=== PATIENT | male | born 1960 | race American Indian/Alaskan Native ===

== ENCOUNTER 2018-11-01 12:04 | Inpatient (IN) | payer MEDICAID ==
[2018-11-01] MEDS ORDERED: SODIUM CHLORIDE FLUSH SYRINGE 10 ML IV PRN (12:06)
[2018-11-01] MEDS ORDERED: NORCO 5/325 PO PRN (12:29)
--- NOTE | 2018-11-01 14:45 | XRay Report ---
AP ABDOMEN: HISTORY: Constipation. The abdominal gas pattern is unremarkable. No masses or organomegaly is identified and there is no gross evidence of free air or fluid. No significant soft tissue calcifications are noted. IMPRESSION: Unremarkable abdomen.
[2018-11-01 15:08] LABS: Basophils % (Auto) 0.6 % (0.0-1.8); Eosinophils # (Auto) 0.1 K/mm3 (0.0-0.4); Hematocrit 32.4 % (35.5-45.6); Lymphocytes # (Auto) 1.7 K/mm3 (1.2-5.4); Lymphocytes % (Auto) 35.4 % (13.4-35.0); Mean Corpuscular HGB Conc 31 % (32-34); Monocytes # (Auto) 0.7 K/mm3 (0.0-0.8); Monocytes % (Auto) 13.7 % (0.0-7.3); Platelet Count 349 K/mm3 (140-440); Red Blood Count 4.73 M/mm3 (3.65-5.03)
[2018-11-01 15:26] LABS: Alanine Aminotransferase 27 units/L (7-56); BUN/Creatinine Ratio 25; Blood Urea Nitrogen 20 mg/dL (9-20); Calcium 8.9 mg/dL (8.4-10.2); Hemolysis Index 0; Mean Corpuscular Volume 69 fl (84-94); Red Cell Distribution Width 21.3 % (13.2-15.2)
--- NOTE | 2018-11-01 17:55 | History and Physical Report ---
History of Present Illness Date of examination: 11/01/18 Date of admission: 11/01/18 13:02 Chief complaint: Generalized weakness/fatigue. History of present illness: patient presented to the office with above cc. He was recently dx with primary hepatocelular cancer.He has not been able to eat, or drink due to lack of appetite . He has had abdominal pain, N/V, and has lost more than 1/3 of his total wt.. he is admitted for sxs management, and control. Past History Past Medical History: anemia, cancer, hepatitis, liver disease Social history: single Family history: cancer Medications and Allergies Allergies Allergy/AdvReac Type Severity Reaction Status Date / Time No Known Allergies Allergy Verified 11/01/18 12:06 Home Medications Medication Instructions Recorded Confirmed Last Taken Type Eliquis 5 mg PO BID 11/01/18 11/01/18 11/01/18 History Lenvima 12 mg PO HS 11/01/18 11/01/18 10/31/18 History Oxycodone HCl 5 mg PO Q4-6H PRN 11/01/18 11/01/18 11/01/18 History Active Meds: Active Medications Acetaminophen/Hydrocodone Bitart ([place] 5/325) 2 each PO Q8H PRN PRN Reason: Pain, Moderate (4-6) Apixaban (Eliquis) 5 mg PO Q12HR JUAN J Dextrose/Sodium Chloride (D5ns) 1,000 mls @ 175 mls/hr IV DIRECT JUAN J Megestrol Acetate (Megace) 600 mg PO QDAY JUAN J Miscellaneous Medication (Eliquis) 5 mg PO BID JUAN J Nicotine (Habitrol) 21 mg TD QDAY JUAN J Ondansetron HCl (Zofran) 4 mg IV Q8H PRN PRN Reason: Nausea And Vomiting Pantoprazole Sodium (Protonix) 40 mg PO QDAY JUAN J Sodium Chloride (Sodium Chloride Flush Syringe 10 Ml) 10 ml IV BID JUAN J Sodium Chloride (Sodium Chloride Flush Syringe 10 Ml) 10 ml IV PRN PRN PRN Reason: LINE FLUSH Review of Systems Constitutional: weight loss, fatigue, weakness, poor appetite, chronic pain Gastrointestinal: abdominal pain, vomiting, constipation, heartburn Rectal: pain Exam - Constitutional General appearance: Present: mild distress, cachectic - EENT Eyes: Present: PERRL ENT: hearing intact, clear oral mucosa - Neck Neck: Present: supple, normal ROM - Respiratory Respiratory effort: normal Respiratory: bilateral: CTA - Cardiovascular Heart Sounds: Present: S1 & S2. Absent: rub, click - Extremities Extremities: pulses symmetrical, No edema Peripheral Pulses: within normal limits - Abdominal General gastrointestinal: Present: soft, tender, non-distended, normal bowel sounds, hepatomegaly Male genitourinary: Present: deferred - Rectal Rectal Exam: deferred - Integumentary Integumentary: Present: clear, warm, dry - Musculoskeletal Musculoskeletal: gait normal, strength equal bilaterally - Psychiatric Psychiatric: appropriate mood/affect, intact judgment & insight - Neurologic Neurologic: CNII-XII intact, moves all extremities Results - Labs CBC & Chem 7: 11/01/18 14:36 11/01/18 14:36 Labs: Abnormal lab results 11/01/18 11/01/18 11/01/18 Range/Units 14:36 14:36 14:36 Hgb 10.0 L (11.8-15.2) gm/dl Hct 32.4 L (35.5-45.6) % MCV 69 L (84-94) fl MCH 21 L (28-32) pg MCHC 31 L (32-34) % RDW 21.3 H (13.2-15.2) % Lymph % (Auto) 35.4 H (13.4-35.0) % [place] % (Auto) 13.7 H (0.0-7.3) % Sodium 135 L (137-145) mmol/L Chloride 96.5 L (98-107) mmol/L Total Bilirubin 1.90 H (0.1-1.2) mg/dL AST 162 H (5-40) units/L Total Protein 8.7 H (6.3-8.2) g/dL Albumin 3.0 L 3.0 L (3.9-5) g/dL Assessment and Plan - Patient Problems (1) Dehydration Current Visit: Yes Status: Acute Plan to address problem: replacement hydration (2) Dehydration symptoms Current Visit: Yes Status: Acute Plan to address problem: Hydration (3) Appetite loss Current Visit: Yes Status: Acute Plan to address problem: supplement (4) Hepatic cancer Current Visit: Yes Status: Acute Plan to address problem: supportive (5) Hep C w/o coma, chronic Current Visit: Yes Status: Acute Plan to address problem: supportive.reffer to GI (6) Anemia Current Visit: Yes Status: Acute Plan to address problem: monitor labs.
[2018-11-01 18:33] LABS: Iron 24 ug/dL (49-181); Total Iron Binding Capacity 364 mcg/dL (250-450)
[2018-11-01] MEDS: HABITROL TD SCH (19:29)
[2018-11-01] MEDS: D5NS 1,000 ML IV SCH (19:29)
[2018-11-01] MEDS: PROTONIX PO SCH (19:29)
[2018-11-01] MEDS: ELIQUIS PO SCH (21:18)
[2018-11-01] MEDS: SODIUM CHLORIDE FLUSH SYRINGE 10 ML IV SCH (21:21)
[2018-11-01] MEDS: LENVATINIB PO SCH (21:37)
[2018-11-01] MEDS ORDERED: NON-FORMULARY (Eliquis 5 MG) PO SCH (22:00)
[2018-11-02] MEDS: D5NS 1,000 ML IV SCH ×2 (01:11→19:28)
[2018-11-02] MEDS: NORCO 5/325 PO PRN ×5 (03:17→23:31)
[2018-11-02] MEDS: PROTONIX PO SCH (09:03)
[2018-11-02] MEDS: ELIQUIS PO SCH ×2 (09:03→22:23)
[2018-11-02] MEDS: MEGACE PO SCH (09:04)
[2018-11-02] MEDS: ZOFRAN IV PRN (09:08)
[2018-11-02] MEDS: SODIUM CHLORIDE FLUSH SYRINGE 10 ML IV SCH ×2 (09:08→22:26)
[2018-11-02] MEDS: HABITROL TD SCH (09:08)
--- NOTE | 2018-11-02 10:28 | Cat Scan Report ---
PROCEDURE: CT ABDOMEN PELVIS W CON TECHNIQUE: Computerized axial tomography of the abdomen and pelvis was performed after the IV inject ion of iodinated nonionic contrast. Sagittal and coronal reformatted images obtained. Oral contrast a dministered. CT DOSE LENGTH PRODUCT: 1212.4 mGycm HISTORY: RUQ PAIN COMPARISONS: None . FINDINGS: Lung bases demonstrate minimal atelectasis. No effusion. Calcified granuloma lingula. Multifocal hypodensity throughout the right lobe of the liver. Liver demonstrates a nodular cirrhotic appearance. There is thrombus in the portal vein. This constellation of findings is highly suspiciou s for infiltrative HCC with tumor thrombus in the portal vein. Differential also includes multifocal right lobe abscess. Trace right upper quadrant ascites Spleen normal size Pancreas unremarkable Gallbladder demonstrates cholelithiasis. No biliary dilatation. Adrenal glands unremarkable Kidneys unremarkable. Atherosclerotic calcification of the aorta. No aneurysm. Celiac and superior mesenteric arteries are patent Bladder contracted. No bowel obstruction. Thickening of the right colon likely representing portal hypertensive colonopat hy secondary to portal vein thrombus. No free air Omentum and mesentery unremarkable. No significant diverticulosis. No diverticulitis No acute bony abnormality IMPRESSION: Multiple hypoattenuating areas throughout the right lobe of the liver. This finding is s uperimposed on a background of nodular cirrhotic liver. The portal vein is thrombosed. This constella tion of findings is suspicious for multifocal infiltrating HCC with tumor thrombus in the portal vein . Differential also includes multifocal loculated hepatic abscess. Clinical correlation. If further i maging evaluation contemplating, multiphasic contrasted MRI recommended. Low volume ascites right upper quadrant Thickening of the right colon likely representing portal hypertensive colonopathy No free air . CRITICAL VALUE: LIVER TUMOR/ABSCESS. PORTAL VEIN THROMBUS LIZ critical value report initiated 10:26 AM 2018 This document is electronically signed by Macario Flores MD., Nov 02 2018 10:26:52 AM ET
--- NOTE | 2018-11-02 14:50 | Progress Note ---
Assessment and Plan - Patient Problems (1) Dehydration Current Visit: Yes Status: Acute Plan to address problem: replacement hydration (2) Dehydration symptoms Current Visit: Yes Status: Acute Plan to address problem: Hydration (3) Appetite loss Current Visit: Yes Status: Acute Plan to address problem: supplement (4) Hepatic cancer Current Visit: Yes Status: Acute Plan to address problem: supportive (5) Hep C w/o coma, chronic Current Visit: Yes Status: Acute Plan to address problem: supportive.reffer to GI (6) Anemia Current Visit: Yes Status: Acute Plan to address problem: monitor labs. Subjective Date of service: 11/02/18 Principal diagnosis: Dehydration, generalized fatigue. Abdominal pain. Interval history: Patient seen/examined, resting in bed, labs/scans reviewed, case d/w patient. Will consult IR for tissue bx, and GI for Hep c. Objective - Constitutional Vitals: Vital Signs - 12hr 11/02/18 11/02/18 05:14 11:10 Temperature 97.5 F L 97.7 F Pulse Rate 54 L 62 Respiratory 24 18 Rate Blood Pressure 148/90 156/95 O2 Sat by Pulse 99 96 Oximetry General appearance: Present: mild distress, cachectic - EENT Eyes: PERRL, EOM intact ENT: hearing intact, clear oral mucosa Ears: bilateral: normal - Neck Neck: supple, normal ROM - Respiratory Respiratory effort: normal Respiratory: bilateral: CTA - Breasts Breasts: deferred - Cardiovascular Rhythm: regular Heart Sounds: Present: S1 & S2. Absent: gallop, rub Extremities: pulses intact, No edema, normal color, Full ROM - Gastrointestinal General gastrointestinal: Present: soft, non-tender, non-distended, normal bowel sounds Rectal Exam: deferred - Genitourinary Male genitourinary: deferred - Integumentary Integumentary: clear, warm, dry - Musculoskeletal Musculoskeletal: 1, strength equal bilaterally - Neurologic Neurologic: moves all extremities - Psychiatric Psychiatric: memory intact, appropriate mood/affect, intact judgment & insight - Labs CBC & Chem 7: 11/01/18 14:36 11/01/18 14:36 Labs: Abnormal lab results 11/01/18 11/01/18 11/01/18 Range/Units 14:36 14:36 14:36 Hgb 10.0 L (11.8-15.2) gm/dl Hct 32.4 L (35.5-45.6) % MCV 69 L (84-94) fl MCH 21 L (28-32) pg MCHC 31 L (32-34) % RDW 21.3 H (13.2-15.2) % Lymph % (Auto) 35.4 H (13.4-35.0) % [place] % (Auto) 13.7 H (0.0-7.3) % Sodium 135 L (137-145) mmol/L Chloride 96.5 L (98-107) mmol/L Iron (49-181) ug/dL Total Bilirubin 1.90 H (0.1-1.2) mg/dL AST 162 H (5-40) units/L Total Protein 8.7 H (6.3-8.2) g/dL Albumin 3.0 L 3.0 L (3.9-5) g/dL 11/01/18 Range/Units 17:59 Hgb (11.8-15.2) gm/dl Hct (35.5-45.6) % MCV (84-94) fl MCH (28-32) pg MCHC (32-34) % RDW (13.2-15.2) % Lymph % (Auto) (13.4-35.0) % [place] % (Auto) (0.0-7.3) % Sodium (137-145) mmol/L Chloride (98-107) mmol/L Iron 24 L (49-181) ug/dL Total Bilirubin (0.1-1.2) mg/dL AST (5-40) units/L Total Protein (6.3-8.2) g/dL Albumin (3.9-5) g/dL Medications & Allergies - Medications Allergies/Adverse Reactions: Allergies No Known Allergies Allergy (Verified 11/01/18 12:06) Home Medications: Home Medications Medication Instructions Recorded Confirmed Last Taken Type Eliquis 5 mg PO BID 11/01/18 11/01/18 11/01/18 History Lenvima 12 mg PO HS 11/01/18 11/01/18 10/31/18 History Oxycodone HCl 5 mg PO Q4-6H PRN 11/01/18 11/01/18 11/01/18 History Active Medications: Generic Name Dose Route Start Last Admin Trade Name Freq PRN Reason Stop Dose Admin Acetaminophen/Hydrocodone Bitart 2 each 11/02/18 03:12 11/02/18 14:16 [place] 5/325 PO 2 each Q4H PRN Administration Pain, Moderate (4-6) Apixaban 5 mg 11/01/18 22:00 11/02/18 09:03 Eliquis PO 5 mg Q12HR JUAN J Administration Dextrose/Sodium Chloride 1,000 mls @ 175 mls/hr 11/01/18 13:00 11/02/18 01:11 D5ns IV 175 mls/hr DIRECT JUAN J Administration Megestrol Acetate 600 mg 11/02/18 10:00 11/02/18 09:04 Megace PO 600 mg QDAY JUAN J Administration Miscellaneous Medication 12 mg 11/01/18 22:00 11/01/18 21:37 Lenvima PO 12 mg HS JUAN J Administration Nicotine 21 mg 11/01/18 14:00 11/02/18 09:08 Habitrol TD 21 mg QDAY JUAN J Administration Ondansetron HCl 4 mg 11/01/18 12:06 11/02/18 09:08 Zofran IV 4 mg Q8H PRN Administration Nausea And Vomiting Pantoprazole Sodium 40 mg 11/01/18 13:00 11/02/18 09:03 Protonix PO 40 mg QDAY JUAN J Administration Sodium Chloride 10 ml 11/01/18 22:00 11/02/18 09:08 Sodium Chloride Flush Syringe 10 Ml IV 10 ml BID JUAN J Administration Sodium Chloride 10 ml 11/01/18 12:06 Sodium Chloride Flush Syringe 10 Ml IV PRN PRN LINE FLUSH
[2018-11-02] MEDS: LENVATINIB PO SCH (22:23)
[2018-11-03] MEDS: D5NS 1,000 ML IV SCH (03:18)
--- NOTE | 2018-11-03 09:30 | Event Note ---
Date: 11/03/18 58 year old male with hepatitis C and infiltrating mass with associated portal vein thrombosis. Reviewed the chart. Infiltrating HCC is in the differential. Multifocal abscess is unlikely given normal WBC and afebrile nature of patient. Liver mass workup requires AFP, hepatitis panel seems to have been already performed (hepatitis C positive per history), and MRI of the liver with and without contrast. MRI can be highly diagnostic of HCC/liver masses in general and may prevent need for biopsy. In addition, biopsy in this patient would be complicated and would require transition to heparin drip. In addition, HCC can seed the tract and bleed, which is why MRI is performed instead. If MRI diagnostic, do not recommend biopsy.
[2018-11-03] MEDS: PROTONIX PO SCH (09:43)
[2018-11-03] MEDS: ELIQUIS PO SCH ×2 (09:43→22:56)
[2018-11-03] MEDS: NORCO 5/325 PO PRN ×4 (09:43→22:55)
[2018-11-03] MEDS: ZOFRAN IV PRN ×2 (09:43→18:26)
[2018-11-03] MEDS: HABITROL TD SCH (09:43)
[2018-11-03] MEDS: MEGACE PO SCH (09:46)
--- NOTE | 2018-11-03 10:16 | Progress Note ---
Assessment and Plan - Patient Problems (1) Dehydration Current Visit: Yes Status: Acute Plan to address problem: replacement hydration (2) Dehydration symptoms Current Visit: Yes Status: Acute Plan to address problem: Hydration (3) Appetite loss Current Visit: Yes Status: Acute Plan to address problem: supplement (4) Hepatic cancer Current Visit: Yes Status: Acute Plan to address problem: supportive (5) Hep C w/o coma, chronic Current Visit: Yes Status: Acute Plan to address problem: supportive.reffer to GI (6) Anemia Current Visit: Yes Status: Acute Plan to address problem: monitor labs. Subjective Date of service: 11/03/18 Principal diagnosis: Dehydration, generalized fatigue. Abdominal pain. Interval history: Patient seen/examined, resting in bed, labs/scans reviewed, case d/w patient. Will consult IR for tissue bx, and GI for Hep c. Patient seen/examined, resting in bed, records reviewed, case d/w him. Awaiting consultants GI, and Vascular/IR Objective - Constitutional Vitals: Vital Signs - 12hr 11/02/18 11/03/18 23:34 05:57 Temperature 97.3 F L 97.7 F Pulse Rate 56 L 49 L Respiratory 20 20 Rate Blood Pressure 177/92 174/94 O2 Sat by Pulse 97 99 Oximetry General appearance: Present: mild distress, cachectic - EENT Eyes: PERRL, EOM intact ENT: hearing intact, clear oral mucosa Ears: bilateral: normal - Neck Neck: supple, normal ROM - Respiratory Respiratory effort: normal Respiratory: bilateral: CTA - Breasts Breasts: deferred - Cardiovascular Rhythm: regular Heart Sounds: Present: S1 & S2. Absent: gallop, rub Extremities: pulses intact, No edema, normal color, Full ROM - Gastrointestinal General gastrointestinal: Present: soft, non-tender, non-distended, normal bowel sounds Rectal Exam: deferred - Genitourinary Male genitourinary: deferred - Integumentary Integumentary: clear, warm, dry - Musculoskeletal Musculoskeletal: 1, strength equal bilaterally - Neurologic Neurologic: moves all extremities - Psychiatric Psychiatric: memory intact, appropriate mood/affect, intact judgment & insight - Labs CBC & Chem 7: 11/01/18 14:36 11/01/18 14:36 Medications & Allergies - Medications Allergies/Adverse Reactions: Allergies No Known Allergies Allergy (Verified 11/01/18 12:06) Home Medications: Home Medications Medication Instructions Recorded Confirmed Last Taken Type Eliquis 5 mg PO BID 11/01/18 11/01/18 11/01/18 History Lenvima 12 mg PO HS 11/01/18 11/01/18 10/31/18 History Oxycodone HCl 5 mg PO Q4-6H PRN 11/01/18 11/01/18 11/01/18 History Active Medications: Generic Name Dose Route Start Last Admin Trade Name Freq PRN Reason Stop Dose Admin Acetaminophen/Hydrocodone Bitart 2 each 11/02/18 03:12 11/03/18 09:43 [place] 5/325 PO 2 each Q4H PRN Administration Pain, Moderate (4-6) Apixaban 5 mg 11/01/18 22:00 11/03/18 09:43 Eliquis PO 5 mg Q12HR JUAN J Administration Dextrose/Sodium Chloride 1,000 mls @ 175 mls/hr 11/01/18 13:00 11/03/18 03:18 D5ns IV 175 mls/hr DIRECT JUAN J Administration Dextrose 1,000 mls @ 75 mls/hr 11/03/18 11:00 D5w IV DIRECT JUAN J Megestrol Acetate 600 mg 11/02/18 10:00 11/03/18 09:46 Megace PO 600 mg QDAY JUAN J Administration Miscellaneous Medication 12 mg 11/01/18 22:00 11/02/18 22:23 Lenvima PO 12 mg HS JUAN J Administration Nicotine 21 mg 11/01/18 14:00 11/03/18 09:43 Habitrol TD 21 mg QDAY JUAN J Administration Ondansetron HCl 4 mg 11/01/18 12:06 11/03/18 09:43 Zofran IV 4 mg Q8H PRN Administration Nausea And Vomiting Pantoprazole Sodium 40 mg 11/01/18 13:00 11/03/18 09:43 Protonix PO 40 mg QDAY JUAN J Administration Sodium Chloride 10 ml 11/01/18 22:00 11/02/18 22:26 Sodium Chloride Flush Syringe 10 Ml IV 10 ml BID JUAN J Administration Sodium Chloride 10 ml 11/01/18 12:06 Sodium Chloride Flush Syringe 10 Ml IV PRN PRN LINE FLUSH
[2018-11-03] MEDS ORDERED: D5NS 1,000 ML IV SCH (11:00)
[2018-11-03] MEDS ORDERED: D5W 1,000 ML IV SCH (11:00)
[2018-11-03] MEDS ORDERED: NACL 0.9% 1000 ML 1,000 ML IV SCH (11:00)
[2018-11-03] MEDS: SODIUM CHLORIDE FLUSH SYRINGE 10 ML IV SCH (18:25)
--- NOTE | 2018-11-03 20:55 | Consultation ---
REFERRING PHYSICIAN: Nam Vallejo DO INDICATION: 1. Hepatitis C. 2. Liver cancer. HISTORY OF PRESENT ILLNESS: The patient is a 58-year-old black male who has been seen by GI for hepatitis C, cirrhosis and liver cancer. The patient reports that he was diagnosed in 08/2018 and told he had liver cancer. The patient gives a vague history that he was started on medicine, but was somewhat dissatisfied with his treatment and was not sure exactly what was the long-term plan. The patient reports that he has been having nausea, vomiting and extreme weight loss and has lost one-third of his weight over the last 3-4 months. The patient subsequently was seen by Dr. Vallejo and admitted and GI consulted. He reports only finding of hepatitis C when he was diagnosed with liver disease back in August and has never been treated. The patient reports some constipation. Denies any rectal bleeding. He reports his last colonoscopy was earlier this year and was benign. He reports some nausea without vomiting. Denies any other specific problems or complaints. PAST MEDICAL HISTORY: 1. Hepatitis C. 2. Liver cancer. MEDICATIONS: Reviewed and updated in chart. ALLERGIES: No known drug allergies. SOCIAL HISTORY: Previous smoker. FAMILY HISTORY: Negative for colon cancer, IBD, or liver disease. REVIEW OF SYSTEMS: GENERAL: Reports some weakness. HEENT: The patient reports eyes are yellow. PULMONARY: No shortness of breath. No cough. No chest pain. GASTROINTESTINAL: Reports right upper left-sided abdominal pain. All points of 13-point review of systems are otherwise negative. PHYSICAL EXAMINATION: VITAL SIGNS: Temperature 97.7, pulse 56, respirations 20, blood pressure 174/90. GENERAL: Somewhat thin and somewhat weak appearing black male, in no acute distress. HEENT: Sclerae icteric. PULMONARY: Clear to auscultation bilaterally. CARDIOVASCULAR: Regular rhythm. Normal S1, S2. ABDOMEN: Positive bowel sounds, soft, mild right upper quadrant pain. No guarding, no rebound. SKIN: No obvious rashes. LABORATORY DATA AND IMAGING STUDIES: Labs are pertinent for white count of 4.9, hemoglobin and hematocrit of 10 and 32.4, platelet count of 349. Chem-7: Sodium of 135, potassium 4.8, chloride 97, CO2 is 27, BUN and creatinine of 28 and 0.8, total bilirubin of 1.9, AST and ALT of 162 and 27 with an alkaline phosphatase of 124. CT scan showed multiple liver lesions noted, especially in the right side of the liver with noted nodular cirrhosis appearance and portal vein thrombosis with findings suggestive of hepatocellular carcinoma. ASSESSMENT: A 58-year-old male who was diagnosed in August when he presented with weight loss and abdominal pain with liver cancer and also noted at that time to be hepatitis C positive. The patient reports he was put on medicines by oncology but wasn't not sure as to the termite helper plan where he was being seen, but was unclear as to the long-term plan of management. Subsequently, was seen by Dr. Vallejo and admitted for further evaluation and management. Suspect the patient has hepatocellular carcinoma, most likely related to chronic hepatitis C, which per him was previously unknown. Management is noted below. PLAN: 1. We will review CT scan. 2. CA 19-9 to be ordered. 3. Agree with liver biopsy as ordered by Oncology. 4. We will get hepatitis C related labs including viral load and genotype. 5. Followup and further recommendation management based on progress and results of the above. 6. Nutrition support per primary team. JOB# [id number] LLOYD/RITA JULIAN
[2018-11-03] MEDS: LENVATINIB PO SCH (22:58)
[2018-11-04] MEDS: SODIUM CHLORIDE FLUSH SYRINGE 10 ML IV SCH ×3 (01:52→21:20)
[2018-11-04 08:50] LABS: Basophils % (Auto) 0.1 % (0.0-1.8); Eosinophils # (Auto) 0.1 K/mm3 (0.0-0.4); Eosinophils % (Auto) 1.9 % (0.0-4.3); Hematocrit 29.2 % (35.5-45.6); Hemoglobin 9.1 gm/dl (11.8-15.2); Lymphocytes # (Auto) 2.1 K/mm3 (1.2-5.4); Lymphocytes % (Auto) 34.4 % (13.4-35.0); Mean Corpuscular HGB Conc 31 % (32-34); Mean Corpuscular Volume 68 fl (84-94); Monocytes # (Auto) 0.5 K/mm3 (0.0-0.8); Monocytes % (Auto) 8.1 % (0.0-7.3); Platelet Count 285 K/mm3 (140-440); Red Blood Count 4.31 M/mm3 (3.65-5.03); Red Cell Distribution Width 21.6 % (13.2-15.2)
[2018-11-04 09:08] LABS: BUN/Creatinine Ratio 11; Blood Urea Nitrogen 8 mg/dL (9-20); Calcium 7.9 mg/dL (8.4-10.2)
[2018-11-04 09:09] LABS: Hemolysis Index 0
[2018-11-04] MEDS: NORCO 5/325 PO PRN ×2 (11:40→23:16)
[2018-11-04] MEDS: APRESOLINE PO SCH ×2 (12:31→21:20)
--- NOTE | 2018-11-04 12:36 | Gastroenterology Progress Note ---
Assessment and Plan 1.hepatitis C 2.liver cancer -HCV VL and genotype pending -CA 19-9, AFP, and CEA pending -etiology-most likely HCC 2/2 chronic hep C -IR following- with no recommendations for liver bx (HCC can seed the tract and bleed) with diagnosistic MRI ordered instead -clinically, patient is stable. Reports continued abd pain. No N/V or active sig ns of bleeding -continue supportive care -further recommendations to follow MRI results as above Subjective Date of service: 11/04/18 Principal diagnosis: hepatitis C, liver cancer Interval history: No acute distress. Reports continued abd pain that is chronic and unchanged. No N/V or active signs of bleeding. Objective - Constitutional Vitals: Temp Pulse Resp BP Pulse Ox 98.0 F 53 L 20 179/99 99 11/04/18 06:00 11/04/18 06:00 11/04/18 06:00 11/04/18 12:31 11/04/18 06:00 General appearance: no acute distress - Respiratory Respiratory: bilateral: CTA (anterior) - Cardiovascular Rhythm: regular - Gastrointestinal General gastrointestinal: Present: soft, non-tender, non-distended, normal bowel sounds - Neurologic Neurological: alert and oriented x3 - Labs CBC & Chem 7: 11/04/18 07:48 11/04/18 07:48 Labs: Laboratory Results - last 24 hr 11/04/18 11/04/18 07:48 07:48 WBC 6.2 RBC 4.31 Hgb 9.1 L Hct 29.2 L MCV 68 L MCH 21 L MCHC 31 L RDW 21.6 H Plt Count 285 Lymph % (Auto) 34.4 [place] % (Auto) 8.1 H Eos % (Auto) 1.9 Baso % (Auto) 0.1 Lymph # 2.1 [place] # 0.5 Eos # 0.1 Baso # 0.0 Seg Neutrophils % 55.5 Seg Neutrophils # 3.4 Sodium 139 Potassium 4.1 Chloride 106.3 Carbon Dioxide 23 Anion Gap 14 BUN 8 L Creatinine 0.7 L Estimated GFR > 60 BUN/Creatinine Ratio 11 Glucose 79 Calcium 7.9 L
[2018-11-04] MEDS: HABITROL TD SCH (12:37)
[2018-11-04] MEDS: MEGACE PO SCH (15:14)
[2018-11-04] MEDS: ELIQUIS PO SCH ×2 (15:14→21:20)
[2018-11-04] MEDS: PROTONIX PO SCH (15:17)
[2018-11-04] MEDS: LENVATINIB PO SCH (21:28)
--- NOTE | 2018-11-04 22:27 | Progress Note ---
Assessment and Plan - Patient Problems (1) Dehydration Current Visit: Yes Status: Acute Plan to address problem: replacement hydration Resolved (2) Dehydration symptoms Current Visit: Yes Status: Acute Plan to address problem: Hydration resolved. (3) Appetite loss Current Visit: Yes Status: Acute Plan to address problem: supplement (4) Hepatic cancer Current Visit: Yes Status: Acute Plan to address problem: supportive (5) Hep C w/o coma, chronic Current Visit: Yes Status: Acute Plan to address problem: supportive.reffer to GI (6) Anemia Current Visit: Yes Status: Acute Plan to address problem: monitor labs. Subjective Date of service: 11/04/18 Principal diagnosis: hepatitis C, liver cancer Interval history: Patient seen/examined, resting in bed, labs/scans reviewed, case d/w patient. Will consult IR for tissue bx, and GI for Hep c. Patient seen/examined, resting in bed, records reviewed, case d/w him. Awaiting consultants GI, and Vascular/IR Patient seen/examined, resting in bed, labs reviewed, case d/w patient. Notes from consultants reviewed, and appreciated. Objective - Constitutional Vitals: Vital Signs - 12hr 11/04/18 11/04/18 11/04/18 11:23 12:31 17:29 Temperature 97.7 F Pulse Rate 59 L Respiratory 18 Rate Blood Pressure 179/99 179/99 146/80 O2 Sat by Pulse 98 Oximetry 11/04/18 21:20 Temperature Pulse Rate 99 H Respiratory Rate Blood Pressure 161/92 O2 Sat by Pulse Oximetry General appearance: Present: mild distress, cachectic - EENT Eyes: PERRL, EOM intact ENT: hearing intact, clear oral mucosa Ears: bilateral: normal - Neck Neck: supple, normal ROM - Respiratory Respiratory effort: normal Respiratory: bilateral: CTA - Breasts Breasts: deferred - Cardiovascular Rhythm: regular Heart Sounds: Present: S1 & S2. Absent: gallop, rub Extremities: pulses intact, No edema, normal color, Full ROM - Gastrointestinal General gastrointestinal: Present: soft, non-tender, non-distended, normal bowel sounds Rectal Exam: deferred - Genitourinary Male genitourinary: deferred - Integumentary Integumentary: clear, warm, dry - Musculoskeletal Musculoskeletal: 1, strength equal bilaterally - Neurologic Neurologic: moves all extremities - Psychiatric Psychiatric: memory intact, appropriate mood/affect, intact judgment & insight - Labs CBC & Chem 7: 11/04/18 07:48 11/04/18 07:48 Labs: Abnormal lab results 11/04/18 11/04/18 Range/Units 07:48 07:48 Hgb 9.1 L (11.8-15.2) gm/dl Hct 29.2 L (35.5-45.6) % MCV 68 L (84-94) fl MCH 21 L (28-32) pg MCHC 31 L (32-34) % RDW 21.6 H (13.2-15.2) % [place] % (Auto) 8.1 H (0.0-7.3) % BUN 8 L (9-20) mg/dL Creatinine 0.7 L (0.8-1.5) mg/dL Calcium 7.9 L (8.4-10.2) mg/dL Medications & Allergies - Medications Allergies/Adverse Reactions: Allergies No Known Allergies Allergy (Verified 11/01/18 12:06) Home Medications: Home Medications Medication Instructions Recorded Confirmed Last Taken Type Eliquis 5 mg PO BID 11/01/18 11/01/18 11/01/18 History Lenvima 12 mg PO HS 11/01/18 11/01/18 10/31/18 History Oxycodone HCl 5 mg PO Q4-6H PRN 11/01/18 11/01/18 11/01/18 History Active Medications: Generic Name Dose Route Start Last Admin Trade Name Freq PRN Reason Stop Dose Admin Acetaminophen/Hydrocodone Bitart 2 each 11/02/18 03:12 11/04/18 11:40 [place] 5/325 PO 2 each Q4H PRN Administration Pain, Moderate (4-6) Apixaban 5 mg 11/01/18 22:00 11/04/18 21:20 Eliquis PO 5 mg Q12HR JUAN J Administration Hydralazine HCl 50 mg 11/04/18 13:00 11/04/18 21:20 Apresoline PO 50 mg BID JUAN J Administration Megestrol Acetate 600 mg 11/02/18 10:00 11/04/18 15:14 Megace PO 600 mg QDAY JUAN J Administration Miscellaneous Medication 12 mg 11/01/18 22:00 11/04/18 21:28 Lenvima PO 12 mg HS JUAN J Administration Nicotine 21 mg 11/01/18 14:00 11/04/18 12:37 Habitrol TD 21 mg QDAY JUAN J Administration Ondansetron HCl 4 mg 11/01/18 12:06 11/03/18 18:26 Zofran IV 4 mg Q8H PRN Administration Nausea And Vomiting Pantoprazole Sodium 40 mg 11/01/18 13:00 11/04/18 15:17 Protonix PO 40 mg QDAY JUAN J Administration Sodium Chloride 10 ml 11/01/18 22:00 11/04/18 21:20 Sodium Chloride Flush Syringe 10 Ml IV 10 ml BID JUAN J Administration Sodium Chloride 10 ml 11/01/18 12:06 Sodium Chloride Flush Syringe 10 Ml IV PRN PRN LINE FLUSH
[2018-11-04] MEDS ORDERED: THORAZINE PO PRN (23:19)
--- NOTE | 2018-11-05 11:28 | Gastroenterology Progress Note ---
Assessment and Plan 1.hepatitis C 2.liver cancer -HCV VL and genotype pending -CA 19-9, AFP, and CEA pending -etiology-most likely HCC 2/2 chronic hep C -no recommendations for liver bx per IR (HCC can seed the tract and bleed) with diagnosistic MRI pending -clinically, patient is stable. Reports continued abd pain. No N/V or active signs of bleeding -continue supportive care -further recommendations to follow MRI results as above Subjective Date of service: 11/05/18 Principal diagnosis: hepatitis C, liver cancer Interval history: No acute distress. Reports continued abd pain that is chronic and unchanged. No N/V or active signs of bleeding. Objective - Constitutional Vitals: Temp Pulse Resp BP Pulse Ox 98.4 F 54 L 16 160/96 97 11/05/18 05:29 11/05/18 05:29 11/05/18 05:29 11/05/18 05:29 11/05/18 05:29 General appearance: no acute distress - Respiratory Respiratory: bilateral: CTA - Cardiovascular Rhythm: regular - Gastrointestinal General gastrointestinal: Present: soft, non-tender, non-distended, normal bowel sounds - Neurologic Neurological: alert and oriented x3 - Labs CBC & Chem 7: 11/04/18 07:48 11/04/18 07:48
[2018-11-05] MEDS: NORCO 5/325 PO PRN ×2 (15:56→21:50)
[2018-11-05] MEDS: ELIQUIS PO SCH ×2 (15:56→21:55)
[2018-11-05] MEDS: PROTONIX PO SCH (15:56)
[2018-11-05] MEDS: HABITROL TD SCH (16:07)
[2018-11-05] MEDS: APRESOLINE PO SCH ×2 (16:08→21:55)
[2018-11-05] MEDS: MEGACE PO SCH (16:09)
[2018-11-05] MEDS: SODIUM CHLORIDE FLUSH SYRINGE 10 ML IV SCH ×2 (16:18→21:58)
[2018-11-05] MEDS: LENVATINIB PO SCH (21:50)
--- NOTE | 2018-11-06 00:51 | Progress Note ---
Assessment and Plan - Patient Problems (1) Dehydration Current Visit: Yes Status: Acute Plan to address problem: replacement hydration Resolved (2) Dehydration symptoms Current Visit: Yes Status: Acute Plan to address problem: Hydration resolved. (3) Appetite loss Current Visit: Yes Status: Acute Plan to address problem: supplement (4) Hepatic cancer Current Visit: Yes Status: Acute Plan to address problem: supportive (5) Hep C w/o coma, chronic Current Visit: Yes Status: Acute Plan to address problem: supportive.reffer to GI (6) Anemia Current Visit: Yes Status: Acute Subjective Date of service: 11/05/18 Principal diagnosis: hepatitis C, liver cancer Interval history: Patient seen/examined, resting in bed, labs/scans reviewed, case d/w patient. Will consult IR for tissue bx, and GI for Hep c. Patient seen/examined, resting in bed, records reviewed, case d/w him. Awaiting consultants GI, and Vascular/IR Patient seen/examined, resting in bed, labs reviewed, case d/w patient. Notes from consultants reviewed, and appreciated. Patient resting in bed, see, with late entry. No new issues at this time, MRI reviewed,showing multiple cancer nodules in the one liver lobe. Will increase pthysical activiyt, and if strong enough, will plan on d/c. Objective - Constitutional Vitals: Vital Signs - 12hr 11/05/18 11/05/18 11/05/18 16:08 17:14 21:55 Temperature 97.9 F Pulse Rate 63 64 Respiratory 18 Rate Blood Pressure 153/93 125/79 139/87 O2 Sat by Pulse 96 Oximetry General appearance: Present: mild distress, cachectic - EENT Eyes: PERRL, EOM intact ENT: hearing intact, clear oral mucosa Ears: bilateral: normal - Neck Neck: supple, normal ROM - Respiratory Respiratory effort: normal Respiratory: bilateral: CTA - Breasts Breasts: deferred - Cardiovascular Rhythm: regular Heart Sounds: Present: S1 & S2. Absent: gallop, rub Extremities: pulses intact, No edema, normal color, Full ROM - Gastrointestinal General gastrointestinal: Present: soft, non-tender, non-distended, normal bowel sounds Rectal Exam: deferred - Genitourinary Male genitourinary: deferred - Integumentary Integumentary: clear, warm, dry - Musculoskeletal Musculoskeletal: 1, strength equal bilaterally - Neurologic Neurologic: moves all extremities - Psychiatric Psychiatric: memory intact, appropriate mood/affect, intact judgment & insight - Labs CBC & Chem 7: 11/04/18 07:48 11/04/18 07:48 Medications & Allergies - Medications Allergies/Adverse Reactions: Allergies No Known Allergies Allergy (Verified 11/01/18 12:06) Home Medications: Home Medications Medication Instructions Recorded Confirmed Last Taken Type Eliquis 5 mg PO BID 11/01/18 11/01/18 11/01/18 History Lenvima 12 mg PO HS 11/01/18 11/01/18 10/31/18 History Oxycodone HCl 5 mg PO Q4-6H PRN 11/01/18 11/01/18 11/01/18 History Active Medications: Generic Name Dose Route Start Last Admin Trade Name Freq PRN Reason Stop Dose Admin Acetaminophen/Hydrocodone Bitart 2 each 11/02/18 03:12 11/05/18 21:50 [place] 5/325 PO 2 each Q4H PRN Administration Pain, Moderate (4-6) Apixaban 5 mg 11/01/18 22:00 11/05/18 21:55 Eliquis PO 5 mg Q12HR JUAN J Administration Chlorpromazine HCl 25 mg 11/04/18 23:19 11/05/18 00:39 Thorazine PO 25 mg Q6H PRN Administration Cough Hydralazine HCl 50 mg 11/04/18 13:00 11/05/18 21:55 Apresoline PO 50 mg BID JUAN J Administration Megestrol Acetate 600 mg 11/02/18 10:00 11/05/18 16:09 Megace PO 600 mg QDAY JUAN J Administration Miscellaneous Medication 12 mg 11/01/18 22:00 11/05/18 21:50 Lenvima PO 12 mg HS JUAN J Administration Nicotine 21 mg 11/01/18 14:00 11/05/18 16:07 Habitrol TD 21 mg QDAY JUAN J Administration Ondansetron HCl 4 mg 11/01/18 12:06 11/03/18 18:26 Zofran IV 4 mg Q8H PRN Administration Nausea And Vomiting Pantoprazole Sodium 40 mg 11/01/18 13:00 11/05/18 15:56 Protonix PO 40 mg QDAY JUAN J Administration Sodium Chloride 10 ml 11/01/18 22:00 11/05/18 21:58 Sodium Chloride Flush Syringe 10 Ml IV 10 ml BID JUAN J Administration Sodium Chloride 10 ml 11/01/18 12:06 Sodium Chloride Flush Syringe 10 Ml IV PRN PRN LINE FLUSH
--- NOTE | 2018-11-06 01:15 | Magnetic Resonance Report ---
PROCEDURE: MRI PELVIS WITHOUT AND WITH CONTRAST TECHNIQUE: Magnetic resonance imaging of the pelvis and prostate gland was performed using standard sequences before and after the IV injection of paramagnetic contrast. CPT 21410 3D RENDERIND rendering with interpretation and reporting with image postprocessing under concurre nt supervision; requiring image postprocessing on an independent workstation. CPT 07781 HISTORY: Liver mass COMPARISONS: CT abdomen pelvis 11/01/2018 . FINDINGS: Prostate gland: Normal . Seminal vesicles: Normal . Bladder: Normal . Pelvic musculature: Normal . Free fluid: There is moderate free pelvic fluid. . Adenopathy or mass: None . Abnormal contrast enhancement: None . IMPRESSION: There is moderate free pelvic fluid. There is no pelvic mass, or adenopathy. MRI of the abdomen reported separately. . This document is electronically signed by Win Baron MD., Nov 06 2018 01:13:43 AM ET
--- NOTE | 2018-11-06 01:25 | Magnetic Resonance Report ---
PROCEDURE: MRI ABDOMEN WITHOUT AND WITH CONTRAST INCLUDING MRCP TECHNIQUE: Magnetic resonance imaging of the abdomen was performed using standard pulse sequences wi thout contrast material, followed by the IV injection paramagnetic contrast and additional sequences. Magnetic resonance cholangiopancreatography of the biliary system was also performed without paramag netic contrast. The original image data was post-processed and reconstructed in 3-dimensions. CPT 74 183, 80869 HISTORY: Liver lesions COMPARISONS: CT 11/01/2018 . FINDINGS: Liver parenchyma: The liver is enlarged and heterogeneous. Contour is irregular suggesting cirrhosis . There is significant heterogeneity of the right lobe of the liver with multiple vascular enhancing parenchymal nodules measuring up to 4.4 cm in diameter. Findings are highly suspicious for infiltrati ng hepatic malignancy such as hepatocellular carcinoma. Biliary system: There is cholelithiasis. There is no specific evidence of cholecystitis. . Pancreas: Normal . Kidneys/Adrenal glands: Normal . Spleen: Normal . Aorta/Lymph nodes: There are enlarged retroperitoneal lymph nodes. . 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 IMPRESSION: There is significant heterogeneity of the right lobe of the liver with multiple vascular enhancing pa renchymal nodules measuring up to 4.4 cm in diameter. Findings are highly suspicious for infiltrating hepatic malignancy such as hepatocellular carcinoma. There is cholelithiasis. There is no specific evidence of cholecystitis. There are enlarged retroperitoneal lymph nodes. 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 . This document is electronically signed by Win Baron MD., Nov 06 2018 01:23:24 AM ET
[2018-11-06] MEDS: NORCO 5/325 PO PRN ×2 (11:02→22:22)
[2018-11-06] MEDS: HABITROL TD SCH (11:03)
[2018-11-06] MEDS: PROTONIX PO SCH (11:03)
[2018-11-06] MEDS: APRESOLINE PO SCH ×2 (11:03→22:17)
[2018-11-06] MEDS: ELIQUIS PO SCH ×2 (11:03→22:18)
[2018-11-06] MEDS: SODIUM CHLORIDE FLUSH SYRINGE 10 ML IV SCH ×2 (11:06→22:19)
--- NOTE | 2018-11-06 11:26 | Gastroenterology Progress Note ---
Assessment and Plan 1.hepatitis C 2.liver cancer -HCV VL and genotype pending -CA 19-9 elevated at 96 -AFP, and CEA pending -etiology-most likely HCC 2/2 chronic hep C -no recommendations for liver bx per IR (HCC can seed the tract and bleed) -diagnosistic MRI completed yesterday with finding highly suspicious for infiltrating hepatic malignancy such as hepatocellular carcinoma (along with gallstones, thrombus of portal vein, esophageal/gastric varices, and enlarged retroperitoneal lymph nodes) -clinically, patient is stable. Reports continued abd pain w/o change. No N/V or active signs of bleeding -continue supportive care -recommend oncology consult for further recommendations Subjective Date of service: 11/06/18 Principal diagnosis: hepatitis C, liver cancer Interval history: Patient up walking around the room this am w/o acute distress. Reports continued abd pain that is chronic and unchanged. No N/V or active signs of bleeding. Objective - Constitutional Vitals: Temp Pulse Resp BP Pulse Ox 97.4 F L 60 20 160/85 100 11/06/18 05:47 11/06/18 11:03 11/06/18 05:47 11/06/18 11:03 11/06/18 05:47 General appearance: no acute distress - Respiratory Respiratory: bilateral: CTA - Cardiovascular Rhythm: regular - Gastrointestinal General gastrointestinal: Present: soft, non-distended, normal bowel sounds - Neurologic Neurological: alert and oriented x3 - Labs CBC & Chem 7: 11/04/18 07:48 11/04/18 07:48 Labs: Laboratory Results - last 24 hr 11/01/18 14:19 CA 19-9 Antigen 96 H
[2018-11-06] MEDS: MEGACE PO SCH (19:41)
[2018-11-06] MEDS: LENVATINIB PO SCH (22:18)
[2018-11-07] MEDS: APRESOLINE PO SCH (10:50)
[2018-11-07] MEDS: ELIQUIS PO SCH (10:51)
[2018-11-07] MEDS: HABITROL TD SCH (10:51)
[2018-11-07] MEDS: PROTONIX PO SCH (10:51)
[2018-11-07] MEDS: NORCO 5/325 PO PRN ×2 (10:51→16:17)
[2018-11-07] MEDS: SODIUM CHLORIDE FLUSH SYRINGE 10 ML IV SCH (10:52)
[2018-11-07] MEDS: ZOFRAN IV PRN (16:17)
[2018-11-07] MEDS: MEGACE PO SCH (16:18)
[2018-11-07 17:41] VITALS: BP 154/89
--- NOTE | 2018-11-07 18:02 | Gastroenterology Progress Note ---
Assessment and Plan Liver: Hep C w/ signs cirrhosis and liver masses consistent with HCC - pt reports for PET scan as outpt - will pursue Hep C treatment as outpt - CEA and AFP pending - ok to d/c from GI standpoint with further Hep C management as outpt - probable HCC per Oncology - will sign off, call of needed Subjective Date of service: 11/07/18 Principal diagnosis: hepatitis C, liver cancer Interval history: - no complaints overnight Objective - Constitutional Vitals: Temp Pulse Resp BP Pulse Ox 97.8 F 64 20 154/89 95 11/07/18 16:53 11/07/18 16:53 11/07/18 16:53 11/07/18 16:53 11/07/18 16:53 General appearance: no acute distress - EENT Eyes: PERRL - Respiratory Respiratory: bilateral: CTA - Cardiovascular Rhythm: regular Heart Sounds: Present: S1 & S2 - Gastrointestinal General gastrointestinal: Present: soft, non-tender, non-distended - Labs CBC & Chem 7: 11/04/18 07:48 11/04/18 07:48 Labs: Laboratory Results - last 24 hr 11/01/18 11/04/18 17:59 07:47 Free PSA See scanned result % Free PSA Calc See scanned result Total PSA See scanned result Hepatitis C Genotype 1b
--- NOTE | 2018-11-07 18:48 | Discharge Summary ---
Providers - Providers Date of Admission: 11/01/18 13:02 Date of discharge: 11/07/18 Attending physician: SAMREEN LOPEZ 11/01/18 13:23 Consult to Dietitian/Nutrition [CONS] Routine Physician Instructions: DIETARY NUTRITION CONSULT. Reason For Exam: PROTEIN CALORIC MALNOURISHED Reason for Consult: Malnutrition 11/02/18 14:41 Consult to Physician [CONS] Routine Comment: Consulting Provider: CUCA AGUILAR Physician Instructions: Reason For Exam: Hep c/cirhosis. 11/02/18 14:44 Consult to Physician [CONS] Routine Comment: Consulting Provider: LETTY FLORES Physician Instructions: Reason For Exam: Tissue bx of the liver uder us, or CT. Primary care physician: [facility] Hospitalization Reason for admission: Dehydration, generalized weakness. Condition: Stable Pertinent studies: MRI/CXY Hospital course: Patient presented to the office, with the above problems.He was admitted for sxs management, He was seen by Vascular, and GI , their rec appreciated. Patient responded well to his tx, and will be d/c home today for out patient w/up, and definitive tx of his Hepatocellular carcinoma. Disposition: DC-01 TO HOME OR SELFCARE - Discharge Diagnoses (1) Dehydration Status: Resolved (2) Dehydration symptoms Status: Resolved (3) Appetite loss Status: Resolved (4) Hepatic cancer Status: Acute (5) Hep C w/o coma, chronic Status: Acute (6) Anemia Status: Acute Core Measure Documentation - Palliative Care Palliative Care/ Comfort Measures: Not Applicable - Core Measures Any of the following diagnoses?: none Exam - Constitutional Vitals: Temp Pulse Resp BP Pulse Ox 97.8 F 64 20 154/89 95 11/07/18 16:53 11/07/18 16:53 11/07/18 16:53 11/07/18 16:53 11/07/18 16:53 General appearance: Present: no acute distress - EENT Eyes: Present: PERRL ENT: hearing intact, clear oral mucosa - Neck Neck: Present: supple, normal ROM - Respiratory Respiratory effort: normal Respiratory: bilateral: CTA - Cardiovascular Heart Sounds: Present: S1 & S2. Absent: rub, click - Extremities Extremities: pulses symmetrical, No edema Peripheral Pulses: within normal limits - Abdominal General gastrointestinal: Present: soft, non-tender, non-distended, normal bowel sounds Male genitourinary: Present: deferred - Rectal Rectal Exam: deferred - Integumentary Integumentary: Present: clear, warm, dry - Musculoskeletal Musculoskeletal: gait normal, strength equal bilaterally - Psychiatric Psychiatric: appropriate mood/affect, intact judgment & insight - Neurologic Neurologic: CNII-XII intact, moves all extremities Plan Activity: no restrictions Diet: regular Follow up with: PRIMARY CARE, [Primary Care Provider] - 7 Days
== END 2018-11-07 19:50 | disposition home or self-care (01) | DRG 435 ==
LOC: 3A 12:04 → UNDOADMIN 12:04 → 3A 13:02
PROVIDERS: ADMIT Internal Medicine Hematology & Oncology; ATTEND Internal Medicine Hematology & Oncology
DX: C22.0 Liver cell carcinoma (principal); E43 Unspecified severe protein-calorie malnutrition; I81 Portal vein thrombosis; E87.1 Hypo-osmolality and hyponatremia; E87.3 Alkalosis; B18.2 Chronic viral hepatitis C; E86.0 Dehydration; Z68.1 Body mass index [BMI] 19.9 or less, adult; Z80.9 Family history of malignant neoplasm, unspecified; Z79.899 Other long term (current) drug therapy
CPT/HCPCS: 36415; 72196; 74018; 74177; 74182; 80048; 80053; 82040; 82106; 82378; 82728; 83550; 83615; 84154; 85025; 86301; 87517; 87902; 99406; G0378; A9577; J2405; J7042; J7070; Q0161; Q9967

== ENCOUNTER 2018-11-28 08:29 | Outpatient (CLI) | payer MEDICAID ==
--- NOTE | 2018-11-28 15:14 | PET Report ---
PET/CT:11/28/18 08:29:00 CLINICAL: Liver cell carcinoma RADIOPHARMACEUTICAL: 13.533mCi F18-FDG. COMPARISON: MRI abdomen and pelvis 11/05/[address] abdomen and pelvis 11/01/18 PET/CT TECHNIQUE- Following intravenous injection of F-18 FDG and an approximately 60 minute uptake period, CT and PET images from the mid skull to the upper thighs were acquired with the patient in the fasted state. No contrast was administered. The CT protocol used for this PET CT study is designed for attenuation correction and anatomic localization of PET abnormalities. This tumbling instructor CT is not desired to produce and cannot replace, duseg-yn-[id number]-art diagnostic CT scans with specific imaging protocols for different body parts and indications. Plasma glucose at the time of this test: 67g/dl. The standardized uptake values (SUV) are normalized to patient body weight and indicate the highest activity concentration (SUV max) in a given disease site. FINDINGS: Brain--Physiologic FDG uptake in the visualized regions of the brain. Neck--A 1.0 x 0.6 cm FDG avid right parotid lymph node with SUV 9.0. No other lymphadenopathy. Physiologic FDG uptake in mucosal structures. Chest--Physiologic FDG uptake in mediastinal blood pool and myocardium. Lungs--No abnormal uptake. A calcified non-FDG avid 6 mm lingular lung nodule. No other pulmonary nodule or mass. Pleura/pericardium--No abnormal uptake. Thoracic nodes--No abnormal uptake. Hepatobiliary--Too numerous to count hypodense FDG avid right hepatic masses involving most of the right lobe of the liver. The dominant mass is central in the right hepatic lobe with SUV 8.2. Much of the right lobe has an SUV of 6.4 whereas the left lobe has an SUV of 4.3. Gallstones with no signs of acute cholecystitis. The bile ducts are nondilated. Spleen--No abnormal uptake. The spleen is enlarged. Pancreas--No abnormal uptake. Adrenal Glands--No abnormal uptake. Kidneys/Ureters/Bladder--No abnormal uptake. Abdominopelvic Nodes--No abnormal uptake. No intraperitoneal or retroperitoneal lymphadenopathy. What was described as retroperitoneal lymphadenopathy on the CT appears to be portosystemic collateral veins in the retroperitoneum. Bowel/Peritoneum/Mesentery--No abnormal uptake and no suspicious bone lesion. Pelvic organs--No abnormal uptake. Bones/Soft Tissues--No abnormal uptake. IMPRESSION- 1. Extensive multifocal FDG avid right hepatic tumor, slightly hepatocellular carcinoma. 2. A suspicious FDG avid right parotid lymph node which may be amenable to image guided biopsy. Recommend further evaluation with ultrasound of the right parotid/neck. 3. No evidence of pulmonary metastasis. 4. No evidence of abdominopelvic jairon metastasis. 5. Cholelithiasis. 6. No biliary obstruction.
== END 2018-11-28 08:30 | disposition home or self-care (01) ==
LOC: PET 08:29
PROVIDERS: ATTEND Internal Medicine Hematology & Oncology
DX: C22.0 Liver cell carcinoma (principal); K80.20 Calculus of gallbladder without cholecystitis without obstruction
CPT/HCPCS: 78815; 82962; A9552

== ENCOUNTER 2019-01-02 08:32 | Day surgery (SDC) | payer MEDICAID ==
--- NOTE | 2019-01-02 11:24 | Short Stay Summary ---
Short Stay Documentation Date of service: 01/02/19 Narrative H&P: Pt with hepatocellular carcinoma. Recent PET demonstrated a positive right parotid nodule or LN measuring 1cm. SUV=9 - History Principal diagnosis: right neck mass Past Medical History: liver disease, other (HCC) - Allergies and Medications Current Medications: Allergies No Known Allergies Allergy (Verified 11/01/18 12:06) Home Medications Medication Instructions Recorded Confirmed Last Taken Type Eliquis 5 mg PO BID 11/01/18 01/02/19 01/01/19 History Lenvima 12 mg PO HS 11/01/18 01/02/19 01/01/19 History Oxycodone HCl 5 mg PO Q4-6H PRN 11/01/18 01/02/19 01/01/19 History Nicotine [Habitrol] 21 mg TD DAILY 01/02/19 01/02/19 01/01/19 History Ondansetron [Zofran TAB] 4 mg PO Q8HR PRN 01/02/19 01/02/19 01/01/19 History - Physical exam General appearance: no acute distress, cachectic HEENT: Atraumatic, PERRLA, EOMI, Mucous membr. moist/pink - Brief post op/procedure progress note Date of procedure: 01/02/19 Pre-op diagnosis: parotid nodule Post-op diagnosis: same Procedure: US guided FNA Anesthesia: local Findings: 1cm right parotid nodule Surgeon: YANETH TILLMAN Estimated blood loss: none Pathology: list (FNA x 3) Specimen disposition: to lab Condition: stable - Hospital course Hospital course: uneventful - Disposition Condition at discharge: Good Disposition: DC-01 TO HOME OR SELFCARE Short Stay Discharge Plan Follow up with: KEMAR MORE MD [Primary Care Provider] - 7 Days
[2019-01-02 12:08] VITALS: BP 161/95
--- NOTE | 2019-01-03 07:47 | Ultrasound Report ---
ULTRASOUND BIOPSY LYMPH NODE HISTORY: C22.0, liver cell carcinoma, positive right parotid nodule/lymph node on PET/CT dated 019. DESCRIPTION OF PROCEDURE: Informed consent was obtained. Sterile technique was utilized. 1% lidocaine for skin anesthesia. Correlation was made with the PET/CT on 11/28/2018. A right parotid nodule or ly mph node was hypermetabolic with SUV = 9.0. Initial scan of the right parotid region demonstrates a 1 .2 x 0.6 x 1.0 cm lymph node or hypoechoic nodule which appears to correspond with the lesion noted o n PET/CT. Sonographically this has the appearance of a normal lymph node. A fatty hilum is identified . Given the PET/CT findings FNA was attempted. Using ultrasound guidance, 3 fine-needle aspirations w ere obtained. One was placed on a microscope slide. One was placed in satellite medium. One was place d in RPI medium for flow cytometry. The patient tolerated the procedure without difficulty. IMPRESSION: Technically successful ultrasound-guided fine-needle aspiration of a right parotid lymph node/nodule as described. Only scant material could be obtained. Please await the formal report from pathology. Signer Name: Antwan Brooks Jr, MD Signed: 01/03/2019 7:43 AM Workstation Name: [id number]
== END 2019-01-02 12:45 | disposition home or self-care (01) ==
LOC: US 08:32 → CATHLABREC 08:32 → EDSTATUS 11:30 → CATHLABREC 12:45
PROVIDERS: ATTEND Internal Medicine Hematology & Oncology
DX: C22.0 Liver cell carcinoma (principal); F17.210 Nicotine dependence, cigarettes, uncomplicated; Z79.899 Other long term (current) drug therapy
CPT/HCPCS: 38505; 76942; 88104; 88173; 88184; 88185; 88305; 88333

== ENCOUNTER 2019-02-07 12:10 | Inpatient (IN) | payer MEDICAID ==
[2019-02-07] MEDS ORDERED: SODIUM CHLORIDE FLUSH SYRINGE 10 ML IV PRN (12:57)
[2019-02-07 13:51] LABS: Hematocrit 29.6 % (35.5-45.6); Hemoglobin 9.8 gm/dl (11.8-15.2); Mean Corpuscular HGB Conc 33 % (32-34); Mean Corpuscular Volume 79 fl (84-94); Platelet Count 148 K/mm3 (140-440); Red Blood Count 3.77 M/mm3 (3.65-5.03)
[2019-02-07 14:07] LABS: % Iron Saturation 17.7 %
[2019-02-07 14:08] LABS: Albumin 2.8 g/dL (3.9-5); Calcium 8.9 mg/dL (8.4-10.2)
[2019-02-07 14:19] LABS: Red Cell Distribution Width 25.9 % (13.2-15.2)
[2019-02-07 15:07] LABS: Total Cells Counted 100
[2019-02-07 15:18] LABS: Basophils % (Manual) 0 % (0.0-1.8)
[2019-02-07 15:20] LABS: Target Cells 2+
[2019-02-07 15:21] LABS: Hypochromasia 1+
[2019-02-07 15:23] LABS: Platelet Estimate Consistent w Auto
[2019-02-07] MEDS: HABITROL TD SCH (15:36)
[2019-02-07] MEDS: D5/0.45NS 1,000 ML IV SCH ×2 (15:36→22:23)
[2019-02-07] MEDS: PERIACTIN PO SCH ×2 (15:55→20:31)
--- NOTE | 2019-02-07 18:51 | Ultrasound Report ---
ULTRASOUND ABDOMEN, LIMITED (RIGHT UPPER QUADRANT) INDICATION: ABD PAIN. COMPARISON: None available. FINDINGS: Pancreas: Visualized portion shows no significant abnormality. Liver: Heterogeneous and irregular. Gallbladder: Distended with sludge. The wall is thickened and heterogeneous measuring 7 mm. Bile ducts: Normal. Common Bile Duct measures 2 mm. Free fluid: Ascites. Additional Findings: None. IMPRESSION: 1. Gallbladder distended with sludge. Associated wall thickening is worrisome for acalculus cholecyst itis. 2. Cirrhotic configuration of the liver. 3. Mild ascites. Signer Name: Armando Gutierrez MD Signed: 02/07/2019 6:46 PM Workstation Name: [id number]
[2019-02-07] MEDS: LENVATINIB PO SCH (22:16)
[2019-02-07] MEDS: SODIUM CHLORIDE FLUSH SYRINGE 10 ML IV SCH (22:16)
[2019-02-08] MEDS: D5/0.45NS 1,000 ML IV SCH ×4 (04:26→22:51)
[2019-02-08] MEDS: PERIACTIN PO SCH ×3 (08:09→22:33)
[2019-02-08] MEDS: SODIUM CHLORIDE FLUSH SYRINGE 10 ML IV SCH ×2 (09:41→22:41)
[2019-02-08] MEDS: LENVATINIB PO SCH (09:42)
[2019-02-08] MEDS: HABITROL TD SCH (09:42)
[2019-02-08] MEDS: NORCO 10/325 PO PRN (09:52)
--- NOTE | 2019-02-08 20:33 | History and Physical Report ---
History of Present Illness Date of examination: 02/07/19 Date of admission: 02/07/19 13:20 Chief complaint: Intractable abd pain, N/V, malnourished, dehydration. History of present illness: Patient presented to the office with CC as above, exam ,revealed generalized fatigue, sunk in temporal muscles, recent fall, and right UQ pain, and had had N/V.He was admitted for sxsx management, and control.He just had evaluation by Dr De Leon, and preparing to be reffered to [facility] transit department clerk, for Hepatocellular carcinoma.Us reviewed, today, and likely acalculus GB, with sludge.Will get Gen surgery involved. Will hydrate, nutrition support, anti emetic, and pain control.He has hx of Hep c, He has stopped drinking, and smoking. Very long past hx of IVDA.he also has pottal vein thrombosis. Past History Past Medical History: anemia, cancer, liver disease, other Social history: single (Portal vein thrombosis.), Lives alone Family history: no significant family history Medications and Allergies Allergies Allergy/AdvReac Type Severity Reaction Status Date / Time No Known Allergies Allergy Verified 11/01/18 12:06 Home Medications Medication Instructions Recorded Confirmed Last Taken Type Eliquis 5 mg PO BID 11/01/18 02/07/19 02/07/19 19:00 History Lenvima 12 mg PO HS 11/01/18 02/07/19 02/06/19 22:00 History Oxycodone HCl 5 mg PO Q4-6H PRN 11/01/18 02/07/19 01/01/19 History Nicotine [Habitrol] 21 mg TD DAILY 01/02/19 02/07/19 01/01/19 History Ondansetron [Zofran TAB] 4 mg PO Q8HR PRN 01/02/19 02/07/19 01/01/19 History Amoxicillin 500 mg PO Q6HR 02/07/19 02/07/19 02/06/19 18:00 History Active Meds: Active Medications Acetaminophen/Hydrocodone Bitart ([place] 10/325) 1 each PO Q6H PRN PRN Reason: Pain, Moderate (4-6) Last Admin: 02/08/19 09:52 Dose: 1 each Documented by: Cyproheptadine HCl (Periactin) 4 mg PO TID [facility] Last Admin: 02/08/19 13:37 Dose: 4 mg Documented by: Dextrose/Sodium Chloride (D5/0.45ns) 1,000 mls @ 175 mls/hr IV DIRECT [facility] Last Admin: 02/08/19 15:45 Dose: 175 mls/hr Documented by: Miscellaneous Medication (Nf Lenvima) 12 mg PO DAILY [facility] Last Admin: 02/08/19 09:42 Dose: 12 mg Documented by: Nicotine (Habitrol) 21 mg TD QDAY [facility] Last Admin: 02/08/19 09:42 Dose: 21 mg Documented by: Ondansetron HCl (Zofran) 4 mg IV Q8H PRN PRN Reason: Nausea And Vomiting Sodium Chloride (Sodium Chloride Flush Syringe 10 Ml) 10 ml IV BID [facility] Last Admin: 02/08/19 09:41 Dose: 10 ml Documented by: Sodium Chloride (Sodium Chloride Flush Syringe 10 Ml) 10 ml IV PRN PRN PRN Reason: LINE FLUSH Review of Systems Constitutional: weight loss, anorexia, fatigue, weakness, malaise, chronic pain Gastrointestinal: abdominal pain, nausea, vomiting, jaundice Musculoskeletal: low back pain, muscle weakness Integumentary: dryness Exam - Constitutional Vitals: Temp Pulse Resp BP Pulse Ox 96.2 F L 80 19 134/88 96 02/08/19 16:32 02/08/19 16:32 02/08/19 16:32 02/08/19 16:32 02/08/19 16:32 General appearance: Present: mild distress, cachectic - EENT Eyes: Present: PERRL ENT: hearing intact, clear oral mucosa - Neck Neck: Present: supple, normal ROM - Respiratory Respiratory effort: normal Respiratory: bilateral: CTA - Cardiovascular Heart Sounds: Present: S1 & S2. Absent: rub, click - Extremities Extremities: pulses symmetrical, No edema Peripheral Pulses: within normal limits - Abdominal General gastrointestinal: Present: soft, non-tender, non-distended, normal bowel sounds Male genitourinary: Present: deferred - Rectal Rectal Exam: deferred - Integumentary Integumentary: Present: clear, warm, dry - Musculoskeletal Musculoskeletal: gait normal, strength equal bilaterally - Psychiatric Psychiatric: appropriate mood/affect, intact judgment & insight - Neurologic Neurologic: CNII-XII intact, moves all extremities Results - Labs CBC & Chem 7: 02/07/19 13:36 02/07/19 13:36 Assessment and Plan - Patient Problems (1) Anemia Current Visit: No Status: Acute Plan to address problem: replacement. (2) Hep C w/o coma, chronic Current Visit: No Status: Acute Plan to address problem: supportive. (3) Hepatic cancer Current Visit: No Status: Acute Plan to address problem: Awaiting tertiary center referral. (4) Appetite loss Current Visit: No Status: Resolved Plan to address problem: enhancement. (5) Dehydration Current Visit: No Status: Resolved Plan to address problem: Hydration. (6) Portal vein thrombosis Current Visit: Yes Status: Acute Plan to address problem: anti coag. (7) Malnourished Current Visit: Yes Status: Acute Plan to address problem: nutrition support. (8) Gall bladder disease Current Visit: Yes Status: Acute Plan to address problem: Consult Gen surgery/
[2019-02-08] MEDS ORDERED: DILAUDID IV PRN (20:43)
[2019-02-09] MEDS: ZOFRAN IV PRN (04:21)
[2019-02-09] MEDS: PERIACTIN PO SCH ×3 (07:45→21:07)
[2019-02-09] MEDS: D5/0.45NS 1,000 ML IV SCH ×3 (07:45→21:14)
[2019-02-09] MEDS: LENVATINIB PO SCH (10:39)
[2019-02-09] MEDS: HABITROL TD SCH (10:39)
[2019-02-09] MEDS: SODIUM CHLORIDE FLUSH SYRINGE 10 ML IV SCH ×2 (10:40→22:00)
--- NOTE | 2019-02-09 12:40 | Consultation ---
History of Present Illness Consult date: 02/09/19 Reason for consult: abdominal pain Requesting physician: SAMREEN LOPEZ Chief complaint: RUQ pain since Mar 2018 - History of present illness History of present illness: 58yo M with a known diagnosis of hepatocellular carcinoma (August 2018) who presents with multiple symptoms. General surgery was asked to see the patient for evaluation for acalculous cholecystitis. Patient reports that he has had right upper quadrant pain since March 2018. Workup was done and eventually he was diagnosed with hepatocellular carcinoma in August 2018. He has lost 40 pounds since that time. He is able to drink liquids but has difficulty with eating due to early satiety. He does not have problems with nausea or vomiting however did have 1 episode of vomiting this morning. Occasionally has bright red blood per rectum and occasionally nasal bleeding. Patient denies any recent fevers or chills. Past History Past Medical History: anemia, cancer, hypertension, liver disease, other Past Surgical History: No surgical history Social history: single (Portal vein thrombosis.), Lives alone. denies: smoking (Stopped in August 2018 - was smoking 1ppd), alcohol abuse, prescription drug abuse, IV drug use Family history: no significant family history Medications and Allergies Allergies Allergy/AdvReac Type Severity Reaction Status Date / Time No Known Allergies Allergy Verified 11/01/18 12:06 Home Medications Medication Instructions Recorded Confirmed Last Taken Type Eliquis 5 mg PO BID 11/01/18 02/07/19 02/07/19 19:00 History Lenvima 12 mg PO HS 11/01/18 02/07/19 02/06/19 22:00 History Oxycodone HCl 5 mg PO Q4-6H PRN 11/01/18 02/07/19 01/01/19 History Nicotine [Habitrol] 21 mg TD DAILY 01/02/19 02/07/19 01/01/19 History Ondansetron [Zofran TAB] 4 mg PO Q8HR PRN 01/02/19 02/07/19 01/01/19 History Amoxicillin 500 mg PO Q6HR 02/07/19 02/07/19 02/06/19 18:00 History Active Meds: Active Medications Acetaminophen/Hydrocodone Bitart ([place] 10/325) 1 each PO Q6H PRN PRN Reason: Pain, Moderate (4-6) Last Admin: 02/08/19 09:52 Dose: 1 each Documented by: Cyproheptadine HCl (Periactin) 4 mg PO TID [facility] Last Admin: 02/09/19 07:45 Dose: 4 mg Documented by: Hydromorphone HCl (Dilaudid) 1 mg IV Q4H PRN PRN Reason: Pain , Severe (7-10) Dextrose/Sodium Chloride (D5/0.45ns) 1,000 mls @ 175 mls/hr IV DIRECT [facility] Last Admin: 02/09/19 07:45 Dose: 175 mls/hr Documented by: Miscellaneous Medication (Nf Lenvima) 12 mg PO DAILY [facility] Last Admin: 02/09/19 10:39 Dose: 12 mg Documented by: Nicotine (Habitrol) 21 mg TD QDAY [facility] Last Admin: 02/09/19 10:39 Dose: 21 mg Documented by: Ondansetron HCl (Zofran) 4 mg IV Q8H PRN PRN Reason: Nausea And Vomiting Last Admin: 02/09/19 04:21 Dose: 4 mg Documented by: Sodium Chloride (Sodium Chloride Flush Syringe 10 Ml) 10 ml IV BID [facility] Last Admin: 02/09/19 10:40 Dose: 10 ml Documented by: Sodium Chloride (Sodium Chloride Flush Syringe 10 Ml) 10 ml IV PRN PRN PRN Reason: LINE FLUSH Last Admin: 02/09/19 04:21 Dose: 10 ml Documented by: Review of Systems - Constitutional weight loss, weakness, chronic pain, no fever, no chills - EENT Ears, nose, mouth and throat: epistaxis - Cardiovascular no chest pain, no shortness of breath - Respiratory no cough - Gastrointestinal abdominal pain, BRBPR (occasional), early satiety, no nausea, no vomiting, no hematemesis - Integumentary jaundice - Neurological weakness Exam Vital Signs Temp Pulse Resp BP Pulse Ox 96.0 F L 75 18 137/93 100 02/07/19 14:36 02/07/19 14:36 02/07/19 14:36 02/07/19 14:36 02/07/19 14:36 - General physical appearance Positive: no distress, no pain, cathetic, chronically ill, other (appears weak. Pleasant gentleman). Negative: well nourished - Eyes Positive: normal occular movement, icteric - Respiratory Positive: normal expansion, normal respiratory effort, clear to auscultation - Cardiovascular Rhythm: regular - Abdomen Abdomen: Present: soft, tender (in epigastric and RUQ area only), distended (mild). Absent: masses, guarding, rigid, wound, surgical scars - Neurologic Neurologic: alert and oriented to time, place and person - Psychiatric Psychiatric: appropriate mood/affect, intact judgment & insight, cooperative Results - Labs 02/07/19 13:36 02/07/19 13:36 - Imaging US - abdomen: report reviewed, image reviewed Additional studies: Reviewed Abd/Pel MRI and CT from October 2018 Assessment and Plan - Patient Problems (1) Right upper quadrant abdominal pain Current Visit: Yes Status: Acute Plan to address problem: Pt stable. I think his pain is related to his hepatocellular carcinoma. He reports that the pain has been present since Mar 2018 and has not changed recently. The history is not suggestive of acute inflammation of the gallbladder. However, if there is strong concern that there is a new issue that could perhaps be explained by gallbladder pathology, would recommend a HIDA scan. No urgent surgery recommended at this time. Overall, it appears as though he is declining from his hepatocellular carcinoma. As a side note, consideration should be given to anticoagulation for his portal vein thrombosis. We will follow along. Please call with any questions. time=45min
--- NOTE | 2019-02-09 13:53 | Progress Note ---
Assessment and Plan - Patient Problems (1) Anemia Current Visit: No Status: Acute Plan to address problem: replacement. (2) Hep C w/o coma, chronic Current Visit: No Status: Acute Plan to address problem: supportive. (3) Hepatic cancer Current Visit: No Status: Acute Plan to address problem: Awaiting tertiary center referral. (4) Appetite loss Current Visit: No Status: Resolved Plan to address problem: enhancement. (5) Dehydration Current Visit: No Status: Resolved Plan to address problem: Hydration. (6) Portal vein thrombosis Current Visit: Yes Status: Acute Plan to address problem: anti coag. (7) Malnourished Current Visit: Yes Status: Acute Plan to address problem: nutrition support. (8) Gall bladder disease Current Visit: Yes Status: Acute Plan to address problem: Consult Gen surgery/ Subjective Date of service: 02/09/19 Interval history: Patient seen/examined, resting in bed, surgery notes reviewed, and will follow rec.Continue with current management, Will check BMP, to see if lytes correction needed. Objective - Constitutional Vitals: Vital Signs - 12hr 02/09/19 04:52 Temperature 97.4 F L Pulse Rate 85 Respiratory 16 Rate Blood Pressure 117/78 O2 Sat by Pulse 98 Oximetry General appearance: Present: mild distress - EENT Eyes: PERRL, EOM intact ENT: hearing intact, clear oral mucosa Ears: bilateral: normal - Neck Neck: supple, normal ROM - Respiratory Respiratory effort: normal Respiratory: bilateral: CTA - Breasts Breasts: deferred - Cardiovascular Rhythm: regular Heart Sounds: Present: S1 & S2. Absent: gallop, rub Extremities: pulses intact, No edema, normal color, Full ROM - Gastrointestinal General gastrointestinal: Present: soft, non-tender, non-distended, normal bowel sounds Rectal Exam: deferred - Genitourinary Male genitourinary: deferred - Integumentary Integumentary: clear, warm, dry - Musculoskeletal Musculoskeletal: 1, strength equal bilaterally - Neurologic Neurologic: moves all extremities - Psychiatric Psychiatric: memory intact, appropriate mood/affect, intact judgment & insight - Labs CBC & Chem 7: 02/07/19 13:36 02/07/19 13:36
[2019-02-09] MEDS: NORCO 10/325 PO PRN (21:07)
[2019-02-10 06:32] LABS: BUN/Creatinine Ratio 10; Blood Urea Nitrogen 7 mg/dL (9-20); Calcium 7.5 mg/dL (8.4-10.2); Hemolysis Index 0
[2019-02-10] MEDS: PERIACTIN PO SCH ×3 (08:31→21:25)
[2019-02-10] MEDS ORDERED: K-DUR PO ONE (09:00)
[2019-02-10] MEDS: HABITROL TD SCH (10:28)
[2019-02-10] MEDS: LENVATINIB PO SCH (10:28)
[2019-02-10] MEDS: SODIUM CHLORIDE FLUSH SYRINGE 10 ML IV SCH ×2 (10:29→21:25)
[2019-02-10] MEDS: K-DUR PO SCH ×3 (12:15→16:45)
[2019-02-10] MEDS: D5/0.45NS 1,000 ML IV SCH ×3 (13:29→19:48)
[2019-02-10] MEDS: ZOFRAN IV PRN (13:48)
[2019-02-10 18:39] LABS: BUN/Creatinine Ratio 10; Blood Urea Nitrogen 6 mg/dL (9-20); Calcium 7.8 mg/dL (8.4-10.2); Hemolysis Index 7
[2019-02-10] MEDS ORDERED: K-DUR PO SCH (20:00)
[2019-02-10] MEDS: D5W/0.45% NACL/KCL 40 MEQ 40 MEQ/1,000 ML BAG IV SCH (21:14)
[2019-02-10] MEDS ORDERED: NARCAN 2 MG/2 ML IV ONE (23:23)
--- NOTE | 2019-02-10 23:38 | Progress Note ---
Assessment and Plan - Patient Problems (1) Anemia Current Visit: No Status: Acute Plan to address problem: replacement. (2) Hep C w/o coma, chronic Current Visit: No Status: Acute Plan to address problem: supportive.see notes above (3) Hepatic cancer Current Visit: No Status: Acute Plan to address problem: Awaiting tertiary center referral. (4) Appetite loss Current Visit: No Status: Resolved Plan to address problem: enhancement. (5) Dehydration Current Visit: No Status: Resolved Plan to address problem: Hydration. (6) Portal vein thrombosis Current Visit: Yes Status: Acute Plan to address problem: anti coag. (7) Malnourished Current Visit: Yes Status: Acute Plan to address problem: nutrition support. (8) Gall bladder disease Current Visit: Yes Status: Acute Plan to address problem: Consult Gen surgery/ Will hold off on HIDA scan, until patient able clinically. (9) Hypokalemia Current Visit: Yes Status: Acute Plan to address problem: This is due to N/V, and GI loss.Will give antiemetic, continue hydration, get renal consult. Replace K+. (10) Hyponatremia Current Visit: Yes Status: Acute Plan to address problem: Due to dehydration/ vol contraction., hhydration, ? hypertonic gonzalo., get renal consult. (11) Malnutrition compromising bodily function Current Visit: Yes Status: Acute (12) Malnutrition due to starvation Current Visit: Yes Status: Acute Plan to address problem: nutrition support, present on admission. Subjective Date of service: 02/10/19 Interval history: Patient seen/examined, resting in bed, surgery notes reviewed, and will follow rec.Continue with current management, Will check BMP, to see if lytes correction needed. Patient seen/examined, resting in bed, labs reviewed, Patient quite lethargic, difficult to arouse. Will put on remote tele, CT of the brain , The last pain meds was yesterday. Narcan ordered to be given, amonia level ordered, probably encephalopathic. metabolic.Will get renal consult. Call family for code status. Objective - Constitutional Vitals: Vital Signs - 12hr 02/10/19 02/10/19 02/10/19 11:40 17:31 20:14 Temperature 96.8 F L 97.4 F L 97.6 F Pulse Rate 76 96 H 94 H Respiratory 18 18 19 Rate Blood Pressure 163/85 131/77 Blood Pressure 117/76 [Left] O2 Sat by Pulse 99 98 100 Oximetry General appearance: Present: cachectic - EENT Eyes: PERRL, EOM intact ENT: hearing intact, clear oral mucosa Ears: bilateral: normal - Neck Neck: supple, normal ROM - Respiratory Respiratory effort: normal Respiratory: bilateral: CTA, diminished - Breasts Breasts: deferred - Cardiovascular Rhythm: regular Heart Sounds: Present: S1 & S2. Absent: gallop, rub Extremities: pulses intact, No edema, normal color, Full ROM - Gastrointestinal General gastrointestinal: Present: soft, non-tender, non-distended, normal bowel sounds Rectal Exam: deferred - Genitourinary Male genitourinary: deferred - Integumentary Integumentary: clear, warm, dry - Musculoskeletal Musculoskeletal: generalized weakness - Labs CBC & Chem 7: 02/07/19 13:36 02/10/19 17:40 Labs: Abnormal lab results 02/10/19 02/10/19 02/10/19 Range/Units 05:36 10:26 17:40 Sodium 127 L 126 L (137-145) mmol/L Potassium 2.0 L* D 2.0 L* 2.6 L* D (3.6-5.0) mmol/L Chloride 88.8 L 87.6 L (98-107) mmol/L Carbon Dioxide 18 L 12 L (22-30) mmol/L BUN 7 L 6 L (9-20) mg/dL Creatinine 0.7 L D 0.6 L (0.8-1.5) mg/dL Glucose 154 H 116 H (75-100) mg/dL Calcium 7.5 L D 7.8 L (8.4-10.2) mg/dL
[2019-02-11 01:22] LABS: Alanine Aminotransferase 51 units/L (7-56); Albumin 2.5 g/dL (3.9-5); BUN/Creatinine Ratio 10; Blood Urea Nitrogen 6 mg/dL (9-20); Calcium 7.7 mg/dL (8.4-10.2); Hemolysis Index 1
--- NOTE | 2019-02-11 01:43 | Cat Scan Report ---
CT head/brain wo con INDICATION: Altered mental status. Lethargy. TECHNIQUE: All CT scans at this location are performed using the following dose modulation technique: Automated exposure control. CONTRAST: None. COMPARISON: None available. FINDINGS: The ventricular system is appropriate in size and configuration without midline shift. Nega tive for mass, stroke or hemorrhage. Evaluation the paranasal sinuses demonstrate complete opacification of the right maxillary sinus whic h is chronic in appearance. IMPRESSION: 1. Negative for intracranial abnormality. 2. Chronic complete opacification right maxillary sinus. Signer Name: Armando Gutierrez MD Signed: 02/11/2019 1:38 AM Workstation Name: [id number]
[2019-02-11] MEDS ORDERED: NACL 0.9% 1000 ML 1,000 ML IV ONE (01:50)
[2019-02-11 01:58] LABS: Hematocrit 26.6 % (35.5-45.6); Hemoglobin 8.8 gm/dl (11.8-15.2); Mean Corpuscular HGB Conc 33 % (32-34); Mean Corpuscular Volume 79 fl (84-94); Platelet Count 148 K/mm3 (140-440); Red Blood Count 3.36 M/mm3 (3.65-5.03)
[2019-02-11] MEDS ORDERED: ROCEPHIN/NS 2 GM/100 ML 2 GM/100 ML BAG IV SCH (02:00)
[2019-02-11 02:08] LABS: Red Cell Distribution Width 25.3 % (13.2-15.2)
[2019-02-11] MEDS: ZOSYN/NS 3.375GM/50ML 3.375 GM/50 ML BAG IV SCH ×2 (02:48→10:28)
[2019-02-11] MEDS: D5W/0.45% NACL/KCL 40 MEQ 40 MEQ/1,000 ML BAG IV SCH ×2 (04:15→10:43)
[2019-02-11 05:06] LABS: Anisocytosis 1+; Basophils % (Manual) 0 % (0.0-1.8); Eosinophils % (Manual) 0 % (0.0-4.3); Target Cells 1+; Total Cells Counted 100
[2019-02-11 05:07] LABS: Platelet Estimate Consistent w Auto
[2019-02-11] MEDS: PERIACTIN PO SCH ×3 (10:18→22:17)
[2019-02-11] MEDS: LENVATINIB PO SCH (10:25)
[2019-02-11] MEDS: SODIUM CHLORIDE FLUSH SYRINGE 10 ML IV SCH ×2 (10:26→22:17)
[2019-02-11] MEDS: HABITROL TD SCH (10:26)
--- NOTE | 2019-02-11 10:59 | Consultation ---
History of Present Illness - Reason for Consult Consult date: 02/11/19 hyponatremia, hypokalemia Requesting physician: SAMREEN LOPEZ - History of Present Illness This is a 58 yo M with PMHx of cirrhosis due to chronic hepatitis C and multiple liver lesions. He was first diagnosed with cirrhosis and hepatocellular carcinoma 08/2018 at a medical center in [place]; at [facility] in 10/2018 pt had an MRI as part of his workup showing multiple liver masses measuring up to 4.4 cm in diameter, suspicious for liver cancer. Thrombosis of the portal vein was also noted with cavernous transformation, also suspicious for infiltrating hepatic malignancy. A PET scan was also performed in the past, showing no pulmonary metastases but positive for an AVID parotid lymph node. pt is now admitted to [facility] after presenting with RUQ pain, episode of nausea/vomiting. labs showed significant electrolyte imbalance incl. hyponatremia/hypokalemia for which renal consult is requested. Past History Past Medical History: anemia, cancer, hypertension, liver disease, other Past Surgical History: No surgical history Social history: single (Portal vein thrombosis.), Lives alone. denies: smoking (Stopped in August 2018 - was smoking 1ppd), alcohol abuse, prescription drug abuse, IV drug use Family history: no significant family history Medications and Allergies Allergies Allergy/AdvReac Type Severity Reaction Status Date / Time No Known Allergies Allergy Verified 11/01/18 12:06 Home Medications Medication Instructions Recorded Confirmed Last Taken Type Eliquis 5 mg PO BID 11/01/18 02/07/19 02/07/19 19:00 History Lenvima 12 mg PO HS 11/01/18 02/07/19 02/06/19 22:00 History Oxycodone HCl 5 mg PO Q4-6H PRN 11/01/18 02/07/19 01/01/19 History Nicotine [Habitrol] 21 mg TD DAILY 01/02/19 02/07/19 01/01/19 History Ondansetron [Zofran TAB] 4 mg PO Q8HR PRN 01/02/19 02/07/19 01/01/19 History Amoxicillin 500 mg PO Q6HR 02/07/19 02/07/19 02/06/19 18:00 History Active Meds: Active Medications Cyproheptadine HCl (Periactin) 4 mg PO TID [facility] Last Admin: 02/11/19 10:18 Dose: Not Given Documented by: Potassium Chloride/Dextrose/Sod Cl (D5w/0.45% Nacl/Kcl 40 Meq) 40 meq in 1,000 mls @ 150 mls/hr IV DIRECT [facility] Last Admin: 02/11/19 10:43 Dose: 150 mls/hr Documented by: Piperacillin Sod/Tazobactam Sod (Zosyn/Ns 3.375gm/50ml) 3.375 gm in 50 mls @ 100 mls/hr IV Q8H [facility]; Protocol Last Admin: 02/11/19 10:28 Dose: 100 mls/hr Documented by: Miscellaneous Medication (Nf Lenvima) 12 mg PO DAILY [facility] Last Admin: 02/11/19 10:25 Dose: Not Given Documented by: Nicotine (Habitrol) 21 mg TD QDAY [facility] Last Admin: 02/11/19 10:26 Dose: 21 mg Documented by: Ondansetron HCl (Zofran) 4 mg IV Q8H PRN PRN Reason: Nausea And Vomiting Last Admin: 02/10/19 13:48 Dose: 4 mg Documented by: Sodium Chloride (Sodium Chloride Flush Syringe 10 Ml) 10 ml IV BID [facility] Last Admin: 02/11/19 10:26 Dose: 10 ml Documented by: Sodium Chloride (Sodium Chloride Flush Syringe 10 Ml) 10 ml IV PRN PRN PRN Reason: LINE FLUSH Last Admin: 02/09/19 04:21 Dose: 10 ml Documented by: Review of Systems All systems: negative Constitutional: weight loss, anorexia, fatigue, weakness, malaise, lethargy, poor appetite Exam - Vital Signs Vital signs: Vital Signs Temp Pulse Resp BP Pulse Ox 96.0 F L 75 18 137/93 100 02/07/19 14:36 02/07/19 14:36 02/07/19 14:36 02/07/19 14:36 02/07/19 14:36 - General Appearance General appearance: appears stated age, cachectic, chronically ill, frail EENT: ATNC, PERRL, mucous membranes moist, other (bitemporal wasting ) Neck: Present: neck supple Respiratory: Clear to Ascultation Heart: regular, S1S2 Gastrointestinal: Present: normoactive bowel sounds Integumentary: no rash, other (no edema ) Neurologic: no focal deficit, alert and oriented x3, strength 5/5, CN 3-12 intact Results - Lab Results 02/11/19 00:30 02/11/19 00:30 Most recent lab results Calcium 7.7 mg/dL (8.4-10.2) L 02/11/19 00:30 Assessment and Plan - Patient Problems (1) Hypokalemia Current Visit: Yes Status: Acute Plan to address problem: likely due to GI loss and decreased po supplementation. cont aggressive IV KCl supplementation. IVF changed to D5NS + 40meq/L KCl given persistent hyponatremia. check Mg level if low will start Mg sulfate 2g IVSS. recheck BMP in AM (2) Hyponatremia Current Visit: Yes Status: Acute Plan to address problem: likely hypovolemic in nature also in the setting of decreased solute intake. IVF changed to D5NS + 40meq/L KCl given persistent hyponatremia (3) Malnourished Current Visit: Yes Status: Acute Plan to address problem: nutriotional consult (4) Hepatic cancer Current Visit: No Status: Acute Plan to address problem: follw hem/onc recommendations (5) Lactic acidosis Current Visit: Yes Status: Acute Plan to address problem: [facility]
[2019-02-11] MEDS: ZOSYN/NS 4.5GM/100ML 4.5 GM/100 ML VIAL IV SCH ×2 (16:03→23:38)
[2019-02-11] MEDS ORDERED: K-DUR PO ONE (17:43)
[2019-02-11] MEDS ORDERED: MAGNESIUM SULFATE 2GM/50ML 2 GM/50 ML BAG IV ONE (17:43)
--- NOTE | 2019-02-11 19:08 | Progress Note ---
Assessment and Plan - Patient Problems (1) Anemia Current Visit: No Status: Acute Plan to address problem: replacement. (2) Hep C w/o coma, chronic Current Visit: No Status: Acute Plan to address problem: supportive.see notes above (3) Hepatic cancer Current Visit: No Status: Acute Plan to address problem: Awaiting tertiary center referral. (4) Appetite loss Current Visit: No Status: Resolved Plan to address problem: enhancement. (5) Dehydration Current Visit: No Status: Resolved Plan to address problem: Hydration. (6) Portal vein thrombosis Current Visit: Yes Status: Acute Plan to address problem: anti coag. (7) Malnourished Current Visit: Yes Status: Acute Plan to address problem: nutrition support. (8) Gall bladder disease Current Visit: Yes Status: Acute Plan to address problem: Consult Gen surgery/ Will hold off on HIDA scan, until patient able clinically. (9) Hypokalemia Current Visit: Yes Status: Acute Plan to address problem: This is due to N/V, and GI loss.Will give antiemetic, continue hydration, get renal consult. Replace K+. (10) Hyponatremia Current Visit: Yes Status: Acute Plan to address problem: Due to dehydration/ vol contraction., hhydration, ? hypertonic gonzalo., get renal consult. (11) Malnutrition compromising bodily function Current Visit: Yes Status: Acute (12) Malnutrition due to starvation Current Visit: Yes Status: Acute Plan to address problem: nutrition support, present on admission. (13) Sepsis with metabolic encephalopathy Current Visit: Yes Status: Acute Plan to address problem: Lactulose/ IV ABX. Subjective Date of service: 02/11/19 Interval history: Patient seen/examined, resting in bed, surgery notes reviewed, and will follow rec.Continue with current management, Will check BMP, to see if lytes correction needed. Patient seen/examined, resting in bed, labs reviewed, Patient quite lethargic, difficult to arouse. Will put on remote tele, CT of the brain , The last pain meds was yesterday. Narcan ordered to be given, amonia level ordered, probably encephalopathic. metabolic.Will get renal consult. Call family for code status. Patient seen/examined, resting in bed, records , notes, labs reviewed, case d/w family, he is made a DNR by the family.He is a bit better today. Objective - Constitutional Vitals: Vital Signs - 12hr 02/11/19 02/11/19 02/11/19 10:00 13:00 16:57 Temperature 97.3 F L 97.3 F L Pulse Rate 95 H 88 Respiratory 22 18 Rate Blood Pressure 133/75 Blood Pressure 164/93 [Left] O2 Sat by Pulse 100 100 Oximetry General appearance: Present: mild distress, cachectic - EENT Eyes: PERRL, EOM intact ENT: hearing intact, clear oral mucosa Ears: bilateral: normal - Neck Neck: supple, normal ROM - Respiratory Respiratory: bilateral: CTA - Breasts Breasts: deferred - Cardiovascular Rhythm: regular Heart Sounds: Present: S1 & S2. Absent: gallop, rub Extremities: pulses intact, No edema, normal color, Full ROM - Gastrointestinal General gastrointestinal: Present: soft, non-tender, non-distended, normal bowel sounds Rectal Exam: deferred - Genitourinary Male genitourinary: deferred - Integumentary Integumentary: clear, warm, dry - Musculoskeletal Musculoskeletal: 1, strength equal bilaterally - Neurologic Neurologic: moves all extremities - Psychiatric Psychiatric: appropriate mood/affect - Labs CBC & Chem 7: 02/11/19 00:30 02/11/19 00:30 Labs: Abnormal lab results 02/11/19 02/11/19 02/11/19 Range/Units 00:30 00:30 00:30 RBC 3.36 L (3.65-5.03) M/mm3 Hgb 8.8 L (11.8-15.2) gm/dl Hct 26.6 L (35.5-45.6) % MCV 79 L (84-94) fl MCH 26 L (28-32) pg RDW 25.3 H (13.2-15.2) % Seg Neuts % (Manual) 86.0 H (40.0-70.0) % Lymphocytes % (Manual) 10.0 L (13.4-35.0) % Seg Neutrophils # Man 8.6 H (1.8-7.7) K/mm3 Lymphocytes # (Manual) 1.0 L (1.2-5.4) K/mm3 Sodium (137-145) mmol/L Potassium (3.6-5.0) mmol/L Chloride (98-107) mmol/L Carbon Dioxide (22-30) mmol/L BUN (9-20) mg/dL Creatinine (0.8-1.5) mg/dL Lactic Acid 10.50 H* (0.7-2.0) mmol/L Calcium (8.4-10.2) mg/dL Magnesium (1.7-2.3) mg/dL Total Bilirubin (0.1-1.2) mg/dL AST (5-40) units/L Alkaline Phosphatase (35-129) units/L Ammonia 196.0 H (25-60) umol/L Albumin (3.9-5) g/dL 02/11/19 02/11/19 02/11/19 Range/Units 00:30 00:30 06:34 RBC (3.65-5.03) M/mm3 Hgb (11.8-15.2) gm/dl Hct (35.5-45.6) % MCV (84-94) fl MCH (28-32) pg RDW (13.2-15.2) % Seg Neuts % (Manual) (40.0-70.0) % Lymphocytes % (Manual) (13.4-35.0) % Seg Neutrophils # Man (1.8-7.7) K/mm3 Lymphocytes # (Manual) (1.2-5.4) K/mm3 Sodium 126 L (137-145) mmol/L Potassium 2.7 L* (3.6-5.0) mmol/L Chloride 88.2 L (98-107) mmol/L Carbon Dioxide 13 L (22-30) mmol/L BUN 6 L (9-20) mg/dL Creatinine 0.6 L (0.8-1.5) mg/dL Lactic Acid 6.20 H* (0.7-2.0) mmol/L Calcium 7.7 L (8.4-10.2) mg/dL Magnesium 1.10 L (1.7-2.3) mg/dL Total Bilirubin 8.50 H (0.1-1.2) mg/dL AST 94 H (5-40) units/L Alkaline Phosphatase 160 H (35-129) units/L Ammonia (25-60) umol/L Albumin 2.5 L (3.9-5) g/dL 08/27/19 08/27/19 Range/Units 08:24 13:17 RBC (3.65-5.03) M/mm3 Hgb (11.8-15.2) gm/dl Hct (35.5-45.6) % MCV (84-94) fl MCH (28-32) pg RDW (13.2-15.2) % Seg Neuts % (Manual) (40.0-70.0) % Lymphocytes % (Manual) (13.4-35.0) % Seg Neutrophils # Man (1.8-7.7) K/mm3 Lymphocytes # (Manual) (1.2-5.4) K/mm3 Sodium (137-145) mmol/L Potassium (3.6-5.0) mmol/L Chloride (98-107) mmol/L Carbon Dioxide (22-30) mmol/L BUN (9-20) mg/dL Creatinine (0.8-1.5) mg/dL Lactic Acid 5.40 H* 4.80 H* (0.7-2.0) mmol/L Calcium (8.4-10.2) mg/dL Magnesium (1.7-2.3) mg/dL Total Bilirubin (0.1-1.2) mg/dL AST (5-40) units/L Alkaline Phosphatase (35-129) units/L Ammonia (25-60) umol/L Albumin (3.9-5) g/dL
[2019-02-11] MEDS: D5W/NS W/KCL 40MEQ 40 MEQ/1,000 ML BAG IV SCH (22:17)
[2019-02-11] MEDS: CEPHULAC PO SCH ×2 (22:17→23:41)
[2019-02-11] MEDS: ATIVAN IV PRN (23:39)
[2019-02-12] MEDS: D5W/NS W/KCL 40MEQ 40 MEQ/1,000 ML BAG IV SCH ×2 (06:25→18:59)
[2019-02-12] MEDS: CEPHULAC PO SCH ×3 (06:26→18:54)
[2019-02-12 07:55] LABS: Alanine Aminotransferase 45 units/L (7-56); Albumin 2.2 g/dL (3.9-5); BUN/Creatinine Ratio 15; Blood Urea Nitrogen 3 mg/dL (9-20); Calcium 7.7 mg/dL (8.4-10.2); Hemolysis Index 0
--- NOTE | 2019-02-12 09:57 | Progress Note ---
Assessment and Plan - Patient Problems (1) Hypokalemia Current Visit: Yes Status: Acute Plan to address problem: likely due to GI loss and decreased po supplementation. cont aggressive IV KCl supplementation, additional po/IV Kcl orderedVF, cont D5NS + 40meq/L KCl. Low Mg noted and Mg sulfate 2g IVSS given. check repeat Mg/k (2) Hyponatremia Current Visit: Yes Status: Acute Plan to address problem: likely hypovolemic in nature also in the setting of decreased solute intake. improving on D5NS + 40meq/L KCl (3) Malnourished Current Visit: Yes Status: Acute Plan to address problem: nutriotional consult (4) Hepatic cancer Current Visit: No Status: Acute Plan to address problem: follw hem/onc recommendations (5) Lactic acidosis Current Visit: Yes Status: Acute Plan to address problem: [facility] Subjective Date of service: 02/12/19 Principal diagnosis: hypokalemia Interval history: Pt is confused, disoriented. in no acute respiratory distress Objective - Vital Signs Vital signs: Vital Signs - 12hr 02/11/19 02/12/19 22:00 07:53 Pulse Rate [ 77 Apical] Respiratory 22 Rate [Upper Back] O2 Sat by Pulse 100 Oximetry - General Appearance General appearance: cachectic, chronically ill, frail EENT: ATNC, mucous membranes dry, other (temporal wasting ) Neck: no JVD Respiratory: Present: Clear to Ascultation Cardiology: regular, S1S2 Gastrointestinal: normoactive bowel sounds Integumentary: no rash, other (no edema ) Neurologic: confused, disoriented - Lab 02/11/19 00:30 02/12/19 07:28 Most recent lab results Calcium 7.7 mg/dL (8.4-10.2) L 02/12/19 07:28 Magnesium 1.10 mg/dL (1.7-2.3) L 02/11/19 00:30 Medications & Allergies - Medications Allergies/Adverse Reactions: Allergies No Known Allergies Allergy (Verified 11/01/18 12:06) Home Medications: Home Medications Medication Instructions Recorded Confirmed Last Taken Type Eliquis 5 mg PO BID 11/01/18 02/07/19 02/07/19 19:00 History Lenvima 12 mg PO HS 11/01/18 02/07/19 02/06/19 22:00 History Oxycodone HCl 5 mg PO Q4-6H PRN 11/01/18 02/07/19 01/01/19 History Nicotine [Habitrol] 21 mg TD DAILY 01/02/19 02/07/19 01/01/19 History Ondansetron [Zofran TAB] 4 mg PO Q8HR PRN 01/02/19 02/07/19 01/01/19 History Amoxicillin 500 mg PO Q6HR 02/07/19 02/07/19 02/06/19 18:00 History Active Medications: Generic Name Dose Route Start Last Admin Trade Name Freq PRN Reason Stop Dose Admin Cyproheptadine HCl 4 mg 02/07/19 14:00 02/11/19 22:17 Periactin PO 4 mg TID JUAN J Administration Potassium Chloride/Dextrose/Sod Cl 40 meq in 1,000 mls @ 125 mls/hr 02/11/19 12:00 02/12/19 06:25 D5w/Ns W/Kcl 40meq IV 125 mls/hr DIRECT JUAN J Administration Piperacillin Sod/Tazobactam Sod 4.5 gm in 100 mls @ 200 mls/hr 02/11/19 16:00 02/11/19 23:38 Zosyn/Ns 4.5gm/100ml IV 200 mls/hr Q8H JUAN J Administration Potassium Chloride 10 meq in 100 mls @ 100 mls/hr 02/12/19 10:00 Kcl 10meq/100ml IV 02/12/19 18:59 Q4H JUAN J Lactulose 20 gm 02/11/19 20:00 02/12/19 06:26 Cephulac PO Not Given Q6HR JUAN J Lorazepam 0.5 mg 02/11/19 21:37 02/11/19 23:39 Ativan IV 0.5 mg Q6H PRN Administration Agitation Miscellaneous Medication 12 mg 02/07/19 22:00 02/11/19 10:25 Nf Lenvima PO Not Given DAILY JUAN J Nicotine 21 mg 02/07/19 14:00 02/11/19 10:26 Habitrol TD 21 mg QDAY JUAN J Administration Ondansetron HCl 4 mg 02/07/19 12:57 02/10/19 13:48 Zofran IV 4 mg Q8H PRN Administration Nausea And Vomiting Potassium Chloride 40 meq 02/12/19 09:54 K-Dur PO 02/12/19 09:55 ONCE ONE Sodium Chloride 10 ml 02/07/19 22:00 02/11/19 22:17 Sodium Chloride Flush Syringe 10 Ml IV 10 ml BID JUAN J Administration Sodium Chloride 10 ml 02/07/19 12:57 02/09/19 04:21 Sodium Chloride Flush Syringe 10 Ml IV 10 ml PRN PRN Administration LINE FLUSH
[2019-02-12] MEDS ORDERED: K-DUR PO ONE (10:00)
[2019-02-12] MEDS: PERIACTIN PO SCH ×3 (10:53→21:46)
[2019-02-12] MEDS: HABITROL TD SCH (10:53)
[2019-02-12] MEDS: ZOSYN/NS 4.5GM/100ML 4.5 GM/100 ML VIAL IV SCH ×3 (10:54→23:39)
[2019-02-12] MEDS: KCL 10MEQ/100ML 10 MEQ/100 ML BAG IV SCH ×3 (13:29→18:00)
[2019-02-12] MEDS: SODIUM CHLORIDE FLUSH SYRINGE 10 ML IV SCH ×2 (15:58→21:46)
[2019-02-12] MEDS: LENVATINIB PO SCH (15:58)
[2019-02-12] MEDS: ATIVAN IV PRN (20:41)
[2019-02-13 04:47] LABS: Hemoglobin 9.7 gm/dl (11.8-15.2); Mean Corpuscular HGB Conc 32 % (32-34); Mean Corpuscular Volume 79 fl (84-94); Red Blood Count 3.81 M/mm3 (3.65-5.03)
[2019-02-13 05:04] LABS: Alanine Aminotransferase 41 units/L (7-56); BUN/Creatinine Ratio 15; Blood Urea Nitrogen 3 mg/dL (9-20); Calcium 7.5 mg/dL (8.4-10.2); Hemolysis Index 4
[2019-02-13 05:21] LABS: Albumin 2.2 g/dL (3.9-5)
[2019-02-13 06:09] LABS: Red Cell Distribution Width 26.3 % (13.2-15.2)
[2019-02-13] MEDS: CEPHULAC PO SCH ×4 (06:15→17:15)
[2019-02-13] MEDS: PERIACTIN PO SCH ×3 (08:35→21:17)
[2019-02-13] MEDS: ZOSYN/NS 4.5GM/100ML 4.5 GM/100 ML VIAL IV SCH ×2 (08:35→16:44)
[2019-02-13 08:37] LABS: Platelet Count 85 K/mm3 (140-440)
[2019-02-13 08:41] LABS: Band Neutrophils # (Manual) 0.1 K/mm3; Basophils % (Manual) 0 % (0.0-1.8); Eosinophils % (Manual) 0 % (0.0-4.3); Total Cells Counted 100
[2019-02-13 08:43] LABS: Anisocytosis 1+; Target Cells 1+
[2019-02-13 08:44] LABS: Platelet Estimate Consistent w Auto
[2019-02-13] MEDS: D5W/NS W/KCL 40MEQ 40 MEQ/1,000 ML BAG IV SCH (09:10)
[2019-02-13] MEDS: HABITROL TD SCH (09:15)
[2019-02-13] MEDS: LENVATINIB PO SCH (09:16)
[2019-02-13] MEDS: SODIUM CHLORIDE FLUSH SYRINGE 10 ML IV SCH ×2 (09:16→21:17)
[2019-02-13] MEDS: D5W/0.45% NACL/KCL 30 MEQ 30 MEQ/1,000 ML BAG IV SCH (13:42)
--- NOTE | 2019-02-13 17:39 | Progress Note ---
Assessment and Plan - Patient Problems (1) Hypokalemia Current Visit: Yes Status: Acute Plan to address problem: likely due to GI loss and decreased po supplementation. K improved. cont aggressive IV KCl supplementation, cont D5 1/2NS + 30meq/L KCl. (2) Hypernatremia Current Visit: Yes Status: Acute Plan to address problem: changed IVF to D5 1/2NS + KCl 30meq/L (3) Malnourished Current Visit: Yes Status: Acute Plan to address problem: nutriotional consult (4) Hepatic cancer Current Visit: No Status: Acute Plan to address problem: follw hem/onc recommendations (5) Lactic acidosis Current Visit: Yes Status: Acute Plan to address problem: [facility] Subjective Date of service: 02/13/19 Principal diagnosis: hypokalemia Interval history: Pt is confused, disoriented. in no acute respiratory distress Objective - Vital Signs Vital signs: Vital Signs - 12hr 02/13/19 02/13/19 08:52 11:55 Temperature 93.1 F L Pulse Rate 80 85 Respiratory 16 16 Rate Blood Pressure 174/104 138/92 O2 Sat by Pulse 100 100 Oximetry - General Appearance General appearance: appears stated age, cachectic, chronically ill, frail EENT: ATNC, PERRL, mucous membranes dry Neck: no JVD Respiratory: Present: Clear to Ascultation Cardiology: regular, S1S2 Gastrointestinal: normoactive bowel sounds Integumentary: no rash, other (no edema ) Neurologic: confused, disoriented - Lab 02/13/19 04:27 02/13/19 04:27 Most recent lab results Calcium 7.5 mg/dL (8.4-10.2) L 02/13/19 04:27 Magnesium 1.10 mg/dL (1.7-2.3) L 02/11/19 00:30 Medications & Allergies - Medications Allergies/Adverse Reactions: Allergies No Known Allergies Allergy (Verified 11/01/18 12:06) Home Medications: Home Medications Medication Instructions Recorded Confirmed Last Taken Type Eliquis 5 mg PO BID 11/01/18 02/07/19 02/07/19 19:00 History Lenvima 12 mg PO HS 11/01/18 02/07/19 02/06/19 22:00 History Oxycodone HCl 5 mg PO Q4-6H PRN 11/01/18 02/07/19 01/01/19 History Nicotine [Habitrol] 21 mg TD DAILY 01/02/19 02/07/19 01/01/19 History Ondansetron [Zofran TAB] 4 mg PO Q8HR PRN 01/02/19 02/07/19 01/01/19 History Amoxicillin 500 mg PO Q6HR 02/07/19 02/07/19 02/06/19 18:00 History Active Medications: Generic Name Dose Route Start Last Admin Trade Name Freq PRN Reason Stop Dose Admin Cyproheptadine HCl 4 mg 02/07/19 14:00 02/13/19 13:44 Periactin PO Not Given TID JUAN J Piperacillin Sod/Tazobactam Sod 4.5 gm in 100 mls @ 200 mls/hr 02/11/19 16:00 02/13/19 16:44 Zosyn/Ns 4.5gm/100ml IV 200 mls/hr Q8H JUAN J Administration Potassium Chloride/Dextrose/Sod Cl 30 meq in 1,000 mls @ 75 mls/hr 02/13/19 09:30 02/13/19 13:42 D5w/0.45% Nacl/Kcl 30 Meq IV 75 mls/hr DIRECT JUAN J Administration Lactulose 20 gm 02/11/19 20:00 02/13/19 17:15 Cephulac PO 20 gm Q6HR JUAN J Administration Lorazepam 0.5 mg 02/11/19 21:37 02/12/19 20:41 Ativan IV 0.5 mg Q6H PRN Administration Agitation Miscellaneous Medication 12 mg 02/07/19 22:00 02/13/19 09:16 Nf Lenvima PO Not Given DAILY JUAN J Nicotine 21 mg 02/07/19 14:00 02/13/19 09:15 Habitrol TD 21 mg QDAY JUAN J Administration Ondansetron HCl 4 mg 02/07/19 12:57 02/10/19 13:48 Zofran IV 4 mg Q8H PRN Administration Nausea And Vomiting Sodium Chloride 10 ml 02/07/19 22:00 02/13/19 09:16 Sodium Chloride Flush Syringe 10 Ml IV 10 ml BID JUAN J Administration Sodium Chloride 10 ml 02/07/19 12:57 02/09/19 04:21 Sodium Chloride Flush Syringe 10 Ml IV 10 ml PRN PRN Administration LINE FLUSH
--- NOTE | 2019-02-13 19:27 | Progress Note ---
Assessment and Plan - Patient Problems (1) Anemia Current Visit: No Status: Acute Plan to address problem: replacement. (2) Hep C w/o coma, chronic Current Visit: No Status: Acute Plan to address problem: supportive.see notes above (3) Hepatic cancer Current Visit: No Status: Acute Plan to address problem: Awaiting tertiary center referral. (4) Appetite loss Current Visit: No Status: Resolved Plan to address problem: enhancement. (5) Dehydration Current Visit: No Status: Resolved Plan to address problem: Hydration. (6) Portal vein thrombosis Current Visit: Yes Status: Acute Plan to address problem: anti coag. (7) Malnourished Current Visit: Yes Status: Acute Plan to address problem: nutrition support. (8) Gall bladder disease Current Visit: Yes Status: Acute Plan to address problem: Consult Gen surgery/ Will hold off on HIDA scan, until patient able clinically. (9) Hypokalemia Current Visit: Yes Status: Acute Plan to address problem: This is due to N/V, and GI loss.Will give antiemetic, continue hydration, get renal consult. Replace K+. (10) Hyponatremia Current Visit: Yes Status: Acute Plan to address problem: Due to dehydration/ vol contraction., hhydration, ? hypertonic gonzalo., get renal consult. (11) Malnutrition compromising bodily function Current Visit: Yes Status: Acute (12) Malnutrition due to starvation Current Visit: Yes Status: Acute Plan to address problem: nutrition support, present on admission. (13) Sepsis with metabolic encephalopathy Current Visit: Yes Status: Ruled-out Plan to address problem: Lactulose/ IV ABX. Ruling out so far, see notes. Subjective Date of service: 02/13/19 Principal diagnosis: hypokalemia Interval history: Patient seen/examined, resting in bed, surgery notes reviewed, and will follow rec.Continue with current management, Will check BMP, to see if lytes correction needed. Patient seen/examined, resting in bed, labs reviewed, Patient quite lethargic, difficult to arouse. Will put on remote tele, CT of the brain , The last pain meds was yesterday. Narcan ordered to be given, amonia level ordered, probably encephalopathic. metabolic.Will get renal consult. Call family for code status. Patient seen/examined, resting in bed, records , notes, labs reviewed, case d/w family, he is made a DNR by the family.He is a bit better today. Patient seen/examined, resting in bed, labs reviewed. So far, BC all negative. and so far, will begin to rule out sepsis, and if UA negative, will definitely rule out sepsis. Objective - Constitutional Vitals: Vital Signs - 12hr 02/13/19 02/13/19 02/13/19 08:52 11:55 16:47 Temperature 93.1 F L 97.2 F L Pulse Rate 80 85 86 Respiratory 16 16 20 Rate Blood Pressure 174/104 138/92 128/89 O2 Sat by Pulse 100 100 100 Oximetry General appearance: Present: mild distress, cachectic - EENT Eyes: PERRL, EOM intact ENT: hearing intact, clear oral mucosa Ears: bilateral: normal - Neck Neck: supple, normal ROM - Respiratory Respiratory effort: normal Respiratory: bilateral: CTA - Breasts Breasts: deferred - Cardiovascular Rhythm: regular Heart Sounds: Present: S1 & S2. Absent: gallop, rub Extremities: pulses intact, No edema, normal color, Full ROM - Gastrointestinal General gastrointestinal: Present: soft, non-tender, non-distended, normal bowel sounds Rectal Exam: deferred - Genitourinary Male genitourinary: deferred - Integumentary Integumentary: clear, warm, dry - Musculoskeletal Musculoskeletal: generalized weakness - Neurologic Neurologic: moves all extremities - Psychiatric Psychiatric: appropriate mood/affect - Labs CBC & Chem 7: 02/13/19 04:27 02/13/19 04:27 Labs: Abnormal lab results 02/13/19 02/13/19 02/13/19 Range/Units 00:07 04:27 04:27 Hgb 9.7 L (11.8-15.2) gm/dl Hct 30.0 L (35.5-45.6) % MCV 79 L (84-94) fl MCH 26 L (28-32) pg RDW 26.3 H (13.2-15.2) % Plt Count 85 L (140-440) K/mm3 Seg Neuts % (Manual) 84.0 H (40.0-70.0) % Lymphocytes % (Manual) 10.0 L (13.4-35.0) % Nucleated RBC % 1.0 H (0.0-0.9) % Lymphocytes # (Manual) 0.5 L (1.2-5.4) K/mm3 Sodium 148 H D (137-145) mmol/L Potassium 3.2 L (3.6-5.0) mmol/L Chloride 111.7 H (98-107) mmol/L BUN 3 L (9-20) mg/dL Creatinine 0.2 L (0.8-1.5) mg/dL Glucose 102 H (75-100) mg/dL POC Glucose 113 H (70-105) Calcium 7.5 L (8.4-10.2) mg/dL Total Bilirubin 7.00 H (0.1-1.2) mg/dL AST 72 H (5-40) units/L Alkaline Phosphatase 151 H (35-129) units/L Ammonia (25-60) umol/L Albumin 2.2 L (3.9-5) g/dL 02/13/19 Range/Units 04:27 Hgb (11.8-15.2) gm/dl Hct (35.5-45.6) % MCV (84-94) fl MCH (28-32) pg RDW (13.2-15.2) % Plt Count (140-440) K/mm3 Seg Neuts % (Manual) (40.0-70.0) % Lymphocytes % (Manual) (13.4-35.0) % Nucleated RBC % (0.0-0.9) % Lymphocytes # (Manual) (1.2-5.4) K/mm3 Sodium (137-145) mmol/L Potassium (3.6-5.0) mmol/L Chloride (98-107) mmol/L BUN (9-20) mg/dL Creatinine (0.8-1.5) mg/dL Glucose (75-100) mg/dL POC Glucose (70-105) Calcium (8.4-10.2) mg/dL Total Bilirubin (0.1-1.2) mg/dL AST (5-40) units/L Alkaline Phosphatase (35-129) units/L Ammonia 73.0 H (25-60) umol/L Albumin (3.9-5) g/dL
[2019-02-14] MEDS: ZOSYN/NS 4.5GM/100ML 4.5 GM/100 ML VIAL IV SCH ×2 (00:27→08:06)
[2019-02-14] MEDS: CEPHULAC PO SCH ×4 (00:29→17:06)
[2019-02-14] MEDS: D5W/0.45% NACL/KCL 30 MEQ 30 MEQ/1,000 ML BAG IV SCH ×2 (04:54→22:36)
[2019-02-14] MEDS: PERIACTIN PO SCH ×3 (08:06→22:36)
[2019-02-14] MEDS: HABITROL TD SCH (11:40)
[2019-02-14] MEDS: SODIUM CHLORIDE FLUSH SYRINGE 10 ML IV SCH ×2 (11:41→22:36)
[2019-02-14] MEDS: LENVATINIB PO SCH (11:42)
--- NOTE | 2019-02-14 14:44 | Progress Note ---
Assessment and Plan - Patient Problems (1) Hypokalemia Current Visit: Yes Status: Acute Plan to address problem: likely due to GI loss and decreased po supplementation. K improved. cont aggressive IV KCl supplementation, cont D5 1/2NS + 30meq/L KCl. recheck BMP today (2) Hypernatremia Current Visit: Yes Status: Acute Plan to address problem: changed IVF to D5 1/2NS + KCl 30meq/L (3) Malnourished Current Visit: Yes Status: Acute Plan to address problem: nutriotional consult (4) Hepatic cancer Current Visit: No Status: Acute Plan to address problem: follw hem/onc recommendations (5) Lactic acidosis Current Visit: Yes Status: Acute Plan to address problem: [facility] Subjective Date of service: 02/14/19 Principal diagnosis: hypokalemia Interval history: Pt is confused, disoriented. in no acute respiratory distress Objective - Vital Signs Vital signs: Vital Signs - 12hr 02/14/19 05:16 Temperature 98.9 F Pulse Rate 104 H Respiratory 18 Rate Blood Pressure 118/82 O2 Sat by Pulse 100 Oximetry - General Appearance General appearance: appears stated age, cachectic, chronically ill, frail EENT: ATNC, PERRL, mucous membranes moist Neck: no JVD Respiratory: Present: Clear to Ascultation Cardiology: regular, S1S2 Gastrointestinal: normoactive bowel sounds Integumentary: no rash, other (no edema ) Neurologic: confused, disoriented - Lab 02/13/19 04:27 02/13/19 04:27 Most recent lab results Calcium 7.5 mg/dL (8.4-10.2) L 02/13/19 04:27 Magnesium 1.10 mg/dL (1.7-2.3) L 02/11/19 00:30 Medications & Allergies - Medications Allergies/Adverse Reactions: Allergies No Known Allergies Allergy (Verified 11/01/18 12:06) Home Medications: Home Medications Medication Instructions Recorded Confirmed Last Taken Type Eliquis 5 mg PO BID 11/01/18 02/07/19 02/07/19 19:00 History Lenvima 12 mg PO HS 11/01/18 02/07/19 02/06/19 22:00 History Oxycodone HCl 5 mg PO Q4-6H PRN 11/01/18 02/07/19 01/01/19 History Nicotine [Habitrol] 21 mg TD DAILY 01/02/19 02/07/19 01/01/19 History Ondansetron [Zofran TAB] 4 mg PO Q8HR PRN 01/02/19 02/07/19 01/01/19 History Amoxicillin 500 mg PO Q6HR 02/07/19 02/07/19 02/06/19 18:00 History Active Medications: Generic Name Dose Route Start Last Admin Trade Name Freq PRN Reason Stop Dose Admin Cyproheptadine HCl 4 mg 02/07/19 14:00 02/14/19 14:40 Periactin PO Not Given TID JUAN J Piperacillin Sod/Tazobactam Sod 4.5 gm in 100 mls @ 200 mls/hr 02/11/19 16:00 02/14/19 08:06 Zosyn/Ns 4.5gm/100ml IV 02/14/19 15:59 200 mls/hr Q8H JUAN J Administration Potassium Chloride/Dextrose/Sod Cl 30 meq in 1,000 mls @ 75 mls/hr 02/13/19 09:30 02/14/19 04:54 D5w/0.45% Nacl/Kcl 30 Meq IV 75 mls/hr DIRECT JUAN J Administration Lactulose 20 gm 02/11/19 20:00 02/14/19 13:00 Cephulac PO Not Given Q6HR JUAN J Lorazepam 0.5 mg 02/11/19 21:37 02/12/19 20:41 Ativan IV 0.5 mg Q6H PRN Administration Agitation Miscellaneous Medication 12 mg 02/07/19 22:00 02/14/19 11:42 Nf Lenvima PO Not Given DAILY JUAN J Nicotine 21 mg 02/07/19 14:00 02/14/19 11:40 Habitrol TD 21 mg QDAY JUAN J Administration Ondansetron HCl 4 mg 02/07/19 12:57 02/10/19 13:48 Zofran IV 4 mg Q8H PRN Administration Nausea And Vomiting Sodium Chloride 10 ml 02/07/19 22:00 02/14/19 11:41 Sodium Chloride Flush Syringe 10 Ml IV 10 ml BID JUAN J Administration Sodium Chloride 10 ml 02/07/19 12:57 02/09/19 04:21 Sodium Chloride Flush Syringe 10 Ml IV 10 ml PRN PRN Administration LINE FLUSH
[2019-02-14 15:40] LABS: BUN/Creatinine Ratio 10; Blood Urea Nitrogen 8 mg/dL (9-20); Calcium 7.3 mg/dL (8.4-10.2); Hemolysis Index 0
--- NOTE | 2019-02-14 18:57 | Progress Note ---
Assessment and Plan - Patient Problems (1) Anemia Current Visit: No Status: Acute Plan to address problem: replacement. (2) Hep C w/o coma, chronic Current Visit: No Status: Acute Plan to address problem: supportive.see notes above (3) Hepatic cancer Current Visit: No Status: Acute Plan to address problem: Awaiting tertiary center referral. (4) Appetite loss Current Visit: No Status: Resolved Plan to address problem: enhancement. (5) Dehydration Current Visit: No Status: Resolved Plan to address problem: Hydration. (6) Portal vein thrombosis Current Visit: Yes Status: Acute Plan to address problem: anti coag. (7) Malnourished Current Visit: Yes Status: Acute Plan to address problem: nutrition support. (8) Gall bladder disease Current Visit: Yes Status: Acute Plan to address problem: Consult Gen surgery/ Will hold off on HIDA scan, until patient able clinically. (9) Hypokalemia Current Visit: Yes Status: Acute Plan to address problem: This is due to N/V, and GI loss.Will give antiemetic, continue hydration, get renal consult. Replace K+. (10) Hyponatremia Current Visit: Yes Status: Acute Plan to address problem: Due to dehydration/ vol contraction., hhydration, ? hypertonic gonzalo., get renal consult. (11) Malnutrition compromising bodily function Current Visit: Yes Status: Acute (12) Malnutrition due to starvation Current Visit: Yes Status: Acute Plan to address problem: nutrition support, present on admission. (13) Sepsis with metabolic encephalopathy Current Visit: Yes Status: Ruled-out Plan to address problem: Lactulose/ IV ABX. Ruling out so far, see notes. Subjective Date of service: 02/14/19 Principal diagnosis: hypokalemia Interval history: Patient seen/examined, resting in bed, surgery notes reviewed, and will follow rec.Continue with current management, Will check BMP, to see if lytes correction needed. Patient seen/examined, resting in bed, labs reviewed, Patient quite lethargic, difficult to arouse. Will put on remote tele, CT of the brain , The last pain meds was yesterday. Narcan ordered to be given, amonia level ordered, probably encephalopathic. metabolic.Will get renal consult. Call family for code status. Patient seen/examined, resting in bed, records , notes, labs reviewed, case d/w family, he is made a DNR by the family.He is a bit better today. Patient seen/examined, resting in bed, labs reviewed. So far, BC all negative. and so far, will begin to rule out sepsis, and if UA negative, will definitely rule out sepsis. Patient seen/examined, resting in bed, labs reviewed, i have spoken to patient about end of life care, I am not able to reach the family at this time. Once i speak with them, and hets a little stonger over the week end, D/c plans will begin. Objective - Constitutional General appearance: Present: mild distress, cachectic - EENT Eyes: PERRL, EOM intact ENT: hearing intact, clear oral mucosa Ears: bilateral: normal - Neck Neck: supple, normal ROM - Respiratory Respiratory effort: normal Respiratory: bilateral: CTA - Breasts Breasts: deferred, normal - Cardiovascular Rhythm: regular Heart Sounds: Present: S1 & S2. Absent: gallop, rub Extremities: pulses intact, No edema, normal color, Full ROM - Gastrointestinal General gastrointestinal: Present: soft, non-tender, non-distended, normal bowel sounds Rectal Exam: deferred - Genitourinary Male genitourinary: deferred - Integumentary Integumentary: clear, warm, dry - Musculoskeletal Musculoskeletal: 1, strength equal bilaterally - Neurologic Neurologic: moves all extremities - Psychiatric Psychiatric: memory intact, appropriate mood/affect, intact judgment & insight - Labs CBC & Chem 7: 02/13/19 04:27 02/14/19 14:49 Labs: Abnormal lab results 02/14/19 Range/Units 14:49 Sodium 147 H (137-145) mmol/L Chloride 114.2 H (98-107) mmol/L Carbon Dioxide 21 L (22-30) mmol/L BUN 8 L (9-20) mg/dL Calcium 7.3 L (8.4-10.2) mg/dL
[2019-02-15] MEDS: CEPHULAC PO SCH ×5 (00:05→23:39)
[2019-02-15 04:50] LABS: Hematocrit 28.6 % (35.5-45.6); Hemoglobin 9.4 gm/dl (11.8-15.2); Mean Corpuscular HGB Conc 33 % (32-34); Mean Corpuscular Volume 80 fl (84-94)
[2019-02-15 04:55] LABS: Platelet Count 96 K/mm3 (140-440); Red Cell Distribution Width 26.3 % (13.2-15.2)
[2019-02-15 05:14] LABS: Alanine Aminotransferase 43 units/L (7-56); Albumin 2.2 g/dL (3.9-5); BUN/Creatinine Ratio 17; Blood Urea Nitrogen 10 mg/dL (9-20); Calcium 7.6 mg/dL (8.4-10.2); Hemolysis Index 1
[2019-02-15 06:40] LABS: Band Neutrophils # (Manual) 0.1 K/mm3; Total Cells Counted 100
[2019-02-15 06:41] LABS: Anisocytosis 1+; Platelet Estimate Consistent w Auto; Target Cells 1+
[2019-02-15] MEDS: PERIACTIN PO SCH ×3 (08:00→20:34)
--- NOTE | 2019-02-15 08:06 | Progress Note ---
Assessment and Plan - Patient Problems (1) Hypokalemia Current Visit: Yes Status: Acute Plan to address problem: likely due to GI loss and decreased po supplementation. K improved. cont aggressive IV KCl supplementation, cont D5 1/2NS + 30meq/L KCl, rate decreased to 50ml/hr. (2) Hypernatremia Current Visit: Yes Status: Acute Plan to address problem: cont D5 1/2NS + KCl 30meq/L (3) Malnourished Current Visit: Yes Status: Acute Plan to address problem: nutriotional consult (4) Hepatic cancer Current Visit: No Status: Acute Plan to address problem: follw hem/onc recommendations (5) Lactic acidosis Current Visit: Yes Status: Acute Plan to address problem: [facility] Subjective Date of service: 02/15/19 Principal diagnosis: hypokalemia Interval history: Pt is more awake, alert, however only oriented to person/place, in no acute respiratory distress Objective - Vital Signs Vital signs: Vital Signs - 12hr 02/14/19 02/15/19 22:58 05:57 Temperature 98.0 F 98.2 F Pulse Rate 97 H 78 Respiratory 16 18 Rate Blood Pressure 148/96 Blood Pressure 130/75 [Left] O2 Sat by Pulse 100 96 Oximetry - General Appearance General appearance: appears stated age, cachectic, chronically ill, frail EENT: ATNC, PERRL, mucous membranes moist Neck: no JVD Respiratory: Present: Clear to Ascultation Cardiology: regular, S1S2 Gastrointestinal: normoactive bowel sounds Integumentary: no rash, other (no edema ) Neurologic: no focal deficit, alert and oriented x3, CN 3-12 intact - Lab 02/15/19 04:37 02/15/19 04:37 Most recent lab results Calcium 7.6 mg/dL (8.4-10.2) L 02/15/19 04:37 Magnesium 1.10 mg/dL (1.7-2.3) L 02/11/19 00:30 Medications & Allergies - Medications Allergies/Adverse Reactions: Allergies No Known Allergies Allergy (Verified 11/01/18 12:06) Home Medications: Home Medications Medication Instructions Recorded Confirmed Last Taken Type Eliquis 5 mg PO BID 11/01/18 02/07/19 02/07/19 19:00 History Lenvima 12 mg PO HS 11/01/18 02/07/19 02/06/19 22:00 History Oxycodone HCl 5 mg PO Q4-6H PRN 11/01/18 02/07/19 01/01/19 History Nicotine [Habitrol] 21 mg TD DAILY 01/02/19 02/07/19 01/01/19 History Ondansetron [Zofran TAB] 4 mg PO Q8HR PRN 01/02/19 02/07/19 01/01/19 History Amoxicillin 500 mg PO Q6HR 02/07/19 02/07/19 02/06/19 18:00 History Active Medications: Generic Name Dose Route Start Last Admin Trade Name Freq PRN Reason Stop Dose Admin Cyproheptadine HCl 4 mg 02/07/19 14:00 02/14/19 22:36 Periactin PO 4 mg TID JUAN J Administration Potassium Chloride/Dextrose/Sod Cl 30 meq in 1,000 mls @ 75 mls/hr 02/13/19 09:30 02/14/19 22:36 D5w/0.45% Nacl/Kcl 30 Meq IV 75 mls/hr DIRECT JUAN J Administration Lactulose 20 gm 02/11/19 20:00 02/15/19 06:32 Cephulac PO 20 gm Q6HR JUAN J Administration Lorazepam 0.5 mg 02/11/19 21:37 02/12/19 20:41 Ativan IV 0.5 mg Q6H PRN Administration Agitation Miscellaneous Medication 12 mg 02/07/19 22:00 02/14/19 11:42 Nf Lenvima PO Not Given DAILY JUAN J Nicotine 21 mg 02/07/19 14:00 02/14/19 11:40 Habitrol TD 21 mg QDAY JUAN J Administration Ondansetron HCl 4 mg 02/07/19 12:57 02/10/19 13:48 Zofran IV 4 mg Q8H PRN Administration Nausea And Vomiting Sodium Chloride 10 ml 02/07/19 22:00 02/14/19 22:36 Sodium Chloride Flush Syringe 10 Ml IV 10 ml BID JUA NJ Administration Sodium Chloride 10 ml 02/07/19 12:57 02/09/19 04:21 Sodium Chloride Flush Syringe 10 Ml IV 10 ml PRN PRN Administration LINE FLUSH
[2019-02-15] MEDS: HABITROL TD SCH (09:14)
[2019-02-15] MEDS: SODIUM CHLORIDE FLUSH SYRINGE 10 ML IV SCH ×2 (09:15→23:41)
[2019-02-15] MEDS: LENVATINIB PO SCH (09:15)
--- NOTE | 2019-02-15 13:41 | Progress Note ---
Assessment and Plan - Patient Problems (1) Anemia Current Visit: No Status: Acute Plan to address problem: replacement. (2) Hep C w/o coma, chronic Current Visit: No Status: Acute Plan to address problem: supportive.see notes above (3) Hepatic cancer Current Visit: No Status: Acute Plan to address problem: Awaiting tertiary center referral. (4) Appetite loss Current Visit: No Status: Resolved Plan to address problem: enhancement. (5) Dehydration Current Visit: No Status: Resolved Plan to address problem: Hydration. (6) Portal vein thrombosis Current Visit: Yes Status: Acute Plan to address problem: anti coag. (7) Malnourished Current Visit: Yes Status: Acute Plan to address problem: nutrition support. (8) Gall bladder disease Current Visit: Yes Status: Acute Plan to address problem: Consult Gen surgery/ Will hold off on HIDA scan, until patient able clinically. (9) Hypokalemia Current Visit: Yes Status: Acute Plan to address problem: This is due to N/V, and GI loss.Will give antiemetic, continue hydration, get renal consult. Replace K+. (10) Hyponatremia Current Visit: Yes Status: Acute Plan to address problem: Due to dehydration/ vol contraction., hhydration, ? hypertonic gonzalo., get renal consult. (11) Malnutrition compromising bodily function Current Visit: Yes Status: Acute (12) Malnutrition due to starvation Current Visit: Yes Status: Acute Plan to address problem: nutrition support, present on admission. (13) Sepsis with metabolic encephalopathy Current Visit: Yes Status: Ruled-out Plan to address problem: Lactulose/ IV ABX. Ruling out so far, see notes. Subjective Date of service: 02/15/19 Principal diagnosis: hypokalemia Interval history: Patient seen/examined, resting in bed, surgery notes reviewed, and will follow rec.Continue with current management, Will check BMP, to see if lytes correction needed. Patient seen/examined, resting in bed, labs reviewed, Patient quite lethargic, difficult to arouse. Will put on remote tele, CT of the brain , The last pain meds was yesterday. Narcan ordered to be given, amonia level ordered, probably encephalopathic. metabolic.Will get renal consult. Call family for code status. Patient seen/examined, resting in bed, records , notes, labs reviewed, case d/w family, he is made a DNR by the family.He is a bit better today. Patient seen/examined, resting in bed, labs reviewed. So far, BC all negative. and so far, will begin to rule out sepsis, and if UA negative, will definitely rule out sepsis. Patient seen/examined, resting in bed, labs reviewed, i have spoken to patient about end of life care, I am not able to reach the family at this time. Once i speak with them, and hets a little stronger over the week end, D/c plans will begin. Patient seen/examined, resting in bed.No new issues at this.Will continue with current management. Objective - Constitutional Vitals: Vital Signs - 12hr 02/15/19 05:57 Temperature 98.2 F Pulse Rate 78 Respiratory 18 Rate Blood Pressure 130/75 [Left] O2 Sat by Pulse 96 Oximetry General appearance: Present: severe distress, well-nourished - EENT Eyes: PERRL, EOM intact ENT: hearing intact, clear oral mucosa Ears: bilateral: normal - Neck Neck: supple, normal ROM - Respiratory Respiratory effort: normal Respiratory: bilateral: CTA - Breasts Breasts: deferred - Cardiovascular Rhythm: regular Heart Sounds: Present: S1 & S2. Absent: gallop, rub Extremities: pulses intact, No edema, normal color, Full ROM - Gastrointestinal General gastrointestinal: Present: soft, non-tender, non-distended, normal bowel sounds Rectal Exam: deferred - Genitourinary Male genitourinary: deferred - Integumentary Integumentary: clear, warm, dry - Musculoskeletal Musculoskeletal: 1, strength equal bilaterally - Neurologic Neurologic: moves all extremities - Psychiatric Psychiatric: memory intact, appropriate mood/affect, intact judgment & insight - Labs CBC & Chem 7: 02/15/19 04:37 02/15/19 04:37 Labs: Abnormal lab results 02/14/19 02/15/19 02/15/19 Range/Units 14:49 04:37 04:37 RBC 3.60 L (3.65-5.03) M/mm3 Hgb 9.4 L (11.8-15.2) gm/dl Hct 28.6 L (35.5-45.6) % MCV 80 L (84-94) fl MCH 26 L (28-32) pg RDW 26.3 H (13.2-15.2) % Plt Count 96 L (140-440) K/mm3 Seg Neuts % (Manual) 80.0 H (40.0-70.0) % Lymphocytes % (Manual) 12.0 L (13.4-35.0) % Lymphocytes # (Manual) 1.1 L (1.2-5.4) K/mm3 Sodium 147 H 148 H (137-145) mmol/L Chloride 114.2 H 114.0 H (98-107) mmol/L Carbon Dioxide 21 L (22-30) mmol/L BUN 8 L (9-20) mg/dL Creatinine 0.6 L (0.8-1.5) mg/dL Glucose 74 L (75-100) mg/dL Calcium 7.3 L 7.6 L (8.4-10.2) mg/dL Total Bilirubin 6.10 H (0.1-1.2) mg/dL AST 95 H (5-40) units/L Alkaline Phosphatase 194 H (35-129) units/L Albumin 2.2 L (3.9-5) g/dL
[2019-02-15] MEDS: D5W/0.45% NACL/KCL 30 MEQ 30 MEQ/1,000 ML BAG IV SCH (17:02)
[2019-02-16] MEDS: ZOFRAN IV PRN (06:03)
[2019-02-16] MEDS: D5W/0.45% NACL/KCL 30 MEQ 30 MEQ/1,000 ML BAG IV SCH (06:07)
[2019-02-16] MEDS: CEPHULAC PO SCH ×2 (06:47→12:00)
[2019-02-16] MEDS: PERIACTIN PO SCH ×2 (08:00→13:49)
[2019-02-16] MEDS: LENVATINIB PO SCH (09:32)
[2019-02-16] MEDS: SODIUM CHLORIDE FLUSH SYRINGE 10 ML IV SCH (09:33)
[2019-02-16] MEDS: HABITROL TD SCH (09:33)
--- NOTE | 2019-02-16 11:46 | Progress Note ---
Assessment and Plan - Patient Problems (1) Anemia Current Visit: No Status: Acute Plan to address problem: replacement. (2) Hep C w/o coma, chronic Current Visit: No Status: Acute Plan to address problem: supportive.see notes above (3) Hepatic cancer Current Visit: No Status: Acute Plan to address problem: Awaiting tertiary center referral. (4) Appetite loss Current Visit: No Status: Resolved Plan to address problem: enhancement. (5) Dehydration Current Visit: No Status: Resolved Plan to address problem: Hydration. (6) Portal vein thrombosis Current Visit: Yes Status: Acute Plan to address problem: anti coag. (7) Malnourished Current Visit: Yes Status: Acute Plan to address problem: nutrition support. (8) Gall bladder disease Current Visit: Yes Status: Acute Plan to address problem: Consult Gen surgery/ Will hold off on HIDA scan, until patient able clinically. (9) Hypokalemia Current Visit: Yes Status: Acute Plan to address problem: This is due to N/V, and GI loss.Will give antiemetic, continue hydration, get renal consult. Replace K+. (10) Hyponatremia Current Visit: Yes Status: Acute Plan to address problem: Due to dehydration/ vol contraction., hhydration, ? hypertonic gonzalo., get renal consult. (11) Malnutrition compromising bodily function Current Visit: Yes Status: Acute (12) Malnutrition due to starvation Current Visit: Yes Status: Acute Plan to address problem: nutrition support, present on admission. (13) Sepsis with metabolic encephalopathy Current Visit: Yes Status: Ruled-out Plan to address problem: Lactulose/ IV ABX. Ruling out so far, see notes. Subjective Date of service: 02/16/19 Principal diagnosis: hypokalemia Interval history: Patient seen/examined, resting in bed, surgery notes reviewed, and will follow rec.Continue with current management, Will check BMP, to see if lytes correction needed. Patient seen/examined, resting in bed, labs reviewed, Patient quite lethargic, difficult to arouse. Will put on remote tele, CT of the brain , The last pain meds was yesterday. Narcan ordered to be given, amonia level ordered, probably encephalopathic. metabolic.Will get renal consult. Call family for code status. Patient seen/examined, resting in bed, records , notes, labs reviewed, case d/w family, he is made a DNR by the family.He is a bit better today. Patient seen/examined, resting in bed, labs reviewed. So far, BC all negative. and so far, will begin to rule out sepsis, and if UA negative, will definitely rule out sepsis. Patient seen/examined, resting in bed, labs reviewed, i have spoken to patient about end of life care, I am not able to reach the family at this time. Once i speak with them, and hets a little stronger over the week end, D/c plans will begin. Patient seen/examined, resting in bed.No new issues at this.Will continue with current management. Patient seen/examined, resting in bed, labs reviewed, No new issues at this time. Labs improving.the family will come to the hospital tomorrow. I have contacted the hospice group that i will be using about his case.Meanwhile, continue to strengthening. Objective - Constitutional Vitals: Vital Signs - 12hr 02/16/19 06:05 Pulse Rate 93 H Respiratory 19 Rate Blood Pressure 125/90 O2 Sat by Pulse 100 Oximetry General appearance: Present: severe distress, cachectic - EENT Eyes: PERRL, EOM intact ENT: hearing intact, clear oral mucosa Ears: bilateral: normal - Neck Neck: supple, normal ROM - Respiratory Respiratory effort: normal Respiratory: bilateral: CTA - Breasts Breasts: deferred - Cardiovascular Rhythm: regular Heart Sounds: Present: S1 & S2. Absent: gallop, rub Extremities: pulses intact, No edema, normal color, Full ROM - Gastrointestinal General gastrointestinal: Present: soft, non-tender, non-distended, normal bowel sounds Rectal Exam: deferred - Genitourinary Male genitourinary: deferred - Integumentary Integumentary: clear, warm, dry - Musculoskeletal Musculoskeletal: 1, strength equal bilaterally - Neurologic Neurologic: moves all extremities - Psychiatric Psychiatric: memory intact, appropriate mood/affect, intact judgment & insight - Labs CBC & Chem 7: 02/15/19 04:37 02/15/19 04:37
--- NOTE | 2019-02-16 14:44 | Progress Note ---
Assessment and Plan - Patient Problems (1) Hypokalemia Current Visit: Yes Status: Acute Plan to address problem: likely due to GI loss and decreased po supplementation. K improved. cont aggressive IV KCl supplementation, cont D5 1/2NS + 30meq/L KCl, rate decreased to 50ml/hr. (2) Hypernatremia Current Visit: Yes Status: Acute Plan to address problem: cont D5 1/2NS + KCl 30meq/L (3) Malnourished Current Visit: Yes Status: Acute Plan to address problem: nutriotional consult (4) Hepatic cancer Current Visit: No Status: Acute Plan to address problem: follw hem/onc recommendations (5) Lactic acidosis Current Visit: Yes Status: Acute Plan to address problem: [facility] (6) Hepatic encephalopathy Current Visit: Yes Status: Acute Plan to address problem: improving on lactulose Subjective Date of service: 02/16/19 Principal diagnosis: hypokalemia Interval history: Pt is more awake, alert, however only oriented to person/place, in no acute respiratory distress Objective - Vital Signs Vital signs: Vital Signs - 12hr 02/16/19 06:05 Pulse Rate 93 H Respiratory 19 Rate Blood Pressure 125/90 O2 Sat by Pulse 100 Oximetry - General Appearance General appearance: cachectic, chronically ill, frail EENT: ATNC, PERRL, mucous membranes dry Neck: no JVD Respiratory: Present: Clear to Ascultation Cardiology: regular, S1S2 Gastrointestinal: normoactive bowel sounds Integumentary: no rash, other (no edema ) Neurologic: no focal deficit, strength 5/5, CN 3-12 intact - Lab 02/15/19 04:37 02/15/19 04:37 Most recent lab results Calcium 7.6 mg/dL (8.4-10.2) L 02/15/19 04:37 Magnesium 1.10 mg/dL (1.7-2.3) L 02/11/19 00:30 Medications & Allergies - Medications Allergies/Adverse Reactions: Allergies No Known Allergies Allergy (Verified 11/01/18 12:06) Home Medications: Home Medications Medication Instructions Recorded Confirmed Last Taken Type Eliquis 5 mg PO BID 11/01/18 02/07/19 02/07/19 19:00 History Lenvima 12 mg PO HS 11/01/18 02/07/19 02/06/19 22:00 History Oxycodone HCl 5 mg PO Q4-6H PRN 11/01/18 02/07/19 01/01/19 History Nicotine [Habitrol] 21 mg TD DAILY 01/02/19 02/07/19 01/01/19 History Ondansetron [Zofran TAB] 4 mg PO Q8HR PRN 01/02/19 02/07/19 01/01/19 History Amoxicillin 500 mg PO Q6HR 02/07/19 02/07/19 02/06/19 18:00 History Active Medications: Generic Name Dose Route Start Last Admin Trade Name Freq PRN Reason Stop Dose Admin Cyproheptadine HCl 4 mg 02/07/19 14:00 02/16/19 13:49 Periactin PO 4 mg TID JUAN J Administration Potassium Chloride/Dextrose/Sod Cl 30 meq in 1,000 mls @ 50 mls/hr 02/13/19 09:30 02/16/19 06:07 D5w/0.45% Nacl/Kcl 30 Meq IV 75 mls/hr DIRECT JUAN J Administration Lactulose 20 gm 02/11/19 20:00 02/16/19 12:00 Cephulac PO 20 gm Q6HR JUAN J Administration Lorazepam 0.5 mg 02/11/19 21:37 02/12/19 20:41 Ativan IV 0.5 mg Q6H PRN Administration Agitation Miscellaneous Medication 12 mg 02/07/19 22:00 02/16/19 09:32 Nf Lenvima PO 12 mg DAILY JUAN J Administration Nicotine 21 mg 02/07/19 14:00 02/16/19 09:33 Habitrol TD 21 mg QDAY JUAN J Administration Ondansetron HCl 4 mg 02/07/19 12:57 02/16/19 06:03 Zofran IV 4 mg Q8H PRN Administration Nausea And Vomiting Sodium Chloride 10 ml 02/07/19 22:00 02/16/19 09:33 Sodium Chloride Flush Syringe 10 Ml IV 10 ml BID JUAN J Administration Sodium Chloride 10 ml 02/07/19 12:57 02/09/19 04:21 Sodium Chloride Flush Syringe 10 Ml IV 10 ml PRN PRN Administration LINE FLUSH
[2019-02-16 14:48] LABS: Partial Thromboplastin Time 44.2 Sec. (24.2-36.6)
[2019-02-16 15:01] LABS: INR 1.89 (0.87-1.13)
[2019-02-16 18:59] VITALS: BP 114/73
--- NOTE | 2019-02-17 07:55 | Death Note ---
Note Date of : 02/16/19 Time of : 16:10 Time Pronounced: 16:15 - Preliminary Cause of (problem) (1) Hepatic cancer Preliminary cause of
== END 2019-02-16 16:10 | DRG 435 ==
LOC: UNDOADMIN 12:10 → 3A 12:10
PROVIDERS: ADMIT Internal Medicine Hematology & Oncology; ATTEND Internal Medicine Hematology & Oncology
DX: C22.8 Malignant neoplasm of liver, primary, unspecified as to type (principal); E43 Unspecified severe protein-calorie malnutrition; G93.41 Metabolic encephalopathy; I81 Portal vein thrombosis; K72.90 Hepatic failure, unspecified without coma; E87.1 Hypo-osmolality and hyponatremia; D64.9 Anemia, unspecified; E86.0 Dehydration; E87.6 Hypokalemia; B18.2 Chronic viral hepatitis C; K82.9 Disease of gallbladder, unspecified; T73.0XXA Starvation, initial encounter; E87.2 Acidosis; Z79.899 Other long term (current) drug therapy; Z87.891 Personal history of nicotine dependence
CPT/HCPCS: 36415; 70450; 76705; 80048; 80053; 82140; 82607; 82962; 83550; 83735; 84132; 85007; 85025; 85610; 85730; 87040; 87086; G0378; J2060; J2310; J2405; J2543; J3475; J3480; J7030